=== PATIENT | female | born 2000 | race Caucasian/White ===

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

== ENCOUNTER 2022-01-29 08:00 | Outpatient (CLI) | payer OTHER | END 2022-01-29 23:59 | LOC: LAB.N 08:00 | PROVIDERS: ATTEND Family Medicine | DX: R30.0 Dysuria (principal) | CPT/HCPCS: 87086 ==

== ENCOUNTER 2022-05-11 05:01 | Emergency (ER) | payer OTHER ==
--- OUTSIDE RECORDS SUMMARY | 2022-05-11 05:08 | EXTERNAL MEDICAL SUMMARY RPT | Continuity of Care Document ---
:2000 Author Organization [facility] Address [address] [place] [address] Phone Allergies and Intolerances date description facility type (no date) No Known Drug Allergies [facility] (unkn own) Encounters No information. Functional Status No information. Immunizations No information. Medications date description facility [id number] Cimetidine 200 MG Oral Tablet [facility] [id number] Ondansetron 4 MG Oral Tablet [facility] Problems No information. Procedures date description facility [id number] [facility] [id number]+0000 [facility] [id number] [facility] Results/Labs test date author facility value unit interpret ation Result panel 1 (unknown) (no (unknown) (unknown) (no value) (units (unk nown) date) unknown) (unknown) (no (unknown) (unknown) Orders: (units (unkno wn) date) unknown) (unknown) (no (unknown) (unknown) (no value) (units (unk nown) date) unknown) (unknown) (no (unknown) (unknown) [place], [place] (units ( unknown) date) [id number] unknown) (unknown) (no (unknown) (unknown) Draft (units (unkno wn) date) unknown) (unknown) (no (unknown) (unknown) Hypertension (units (u nknown) date) unknown) (unknown) (no (unknown) (unknown) [facility] (units (unknown) date) unknown) (unknown) (no (unknown) (unknown) Urology Office (units (unknown) date) Visit unknown) (unknown) (no (unknown) (unknown) (no value) (units (unk nown) date) unknown) (unknown) (no (unknown) (unknown) 02/19/22 (units (unkno wn) date) unknown) (unknown) (no (unknown) (unknown) [id number] (units (unkno wn) date) unknown) (unknown) (no (unknown) (unknown) 21 y/o F presents (units (unknown) date) to clinic as a New unknown) Patient. Blood in urine. UTI. (unknown) (no (unknown) (unknown) Age/Sex: 21 / F (units (unknown) date) Date of Service: unknown) (unknown) (no (unknown) (unknown) Allergies (units (unkn own) date) unknown) (unknown) (no (unknown) (unknown) Assessment + Plan (units (unknown) date) unknown) (unknown) (no (unknown) (unknown) Attending Dr: (units ( unknown) date) Mikel Nicolas MD unknown) (unknown) (no (unknown) (unknown) : 2000 (units (unknown) date) Acct:[id number] unknown) (unknown) (no (unknown) (unknown) Dept at (units (unkno wn) date) . unknown) (unknown) (no (unknown) (unknown) Documented By: (units (unknown) date) Mikel Nicolas MD unknown) 02/19/22 1026 (unknown) (no (unknown) (unknown) Family History (units (unknown) date) (Updated 02/15/22 @ unknown) 15:55 by Isha Coffey RN) (unknown) (no (unknown) (unknown) Father Eczema (units (unknown) date) unknown) (unknown) (no (unknown) (unknown) Grandfather (units (un known) date) Cancer unknown) (unknown) (no (unknown) (unknown) History of ADHD (units (unknown) date) unknown) (unknown) (no (unknown) (unknown) Hx of (units (unkno wn) date) gastroesophageal unknown) reflux (GERD) (unknown) (no (unknown) (unknown) Hx of insomnia (units (unknown) date) unknown) (unknown) (no (unknown) (unknown) Intake (units (unkno wn) date) unknown) (unknown) (no (unknown) (unknown) Intake Note: (units (u nknown) date) unknown) (unknown) (no (unknown) (unknown) Loc: [facility] (units (unkno wn) date) unknown) (unknown) (no (unknown) (unknown) Medical History (units (unknown) date) (Updated 02/15/22 @ unknown) 15:51 by Isha Coffey RN) (unknown) (no (unknown) (unknown) Medications (units (un known) date) unknown) (unknown) (no (unknown) (unknown) Mother (units (unkno wn) date) Congenital heart unknown) defect (unknown) (no (unknown) (unknown) No Known Drug (units ( unknown) date) Allergies Allergy unknown) (Unverified 02/15/22 15:50) (unknown) (no (unknown) (unknown) Orders (units (unkno wn) date) unknown) (unknown) (no (unknown) (unknown) PFSH (units (unkno wn) date) unknown) (unknown) (no (unknown) (unknown) POC Urine Dip (units ( unknown) date) Today R30.0 - unknown) Dysuria (unknown) (no (unknown) (unknown) Patient: (units (unkno wn) date) Queta Gallagher P unknown) MR#: [id number] (unknown) (no (unknown) (unknown) Reason For Visit (units (unknown) date) unknown) (unknown) (no (unknown) (unknown) Signed By: (units (unk nown) date) unknown) (unknown) (no (unknown) (unknown) Sister Anxiety (units (unknown) date) unknown) (unknown) (no (unknown) (unknown) Smokeless tobacco (units (unknown) date) user: other unknown) (unknown) (no (unknown) (unknown) Smoking Status: (units (unknown) date) Current every day unknown) smoker (unknown) (no (unknown) (unknown) Smoking Status: (units (unknown) date) Current every day unknown) smoker (unknown) (no (unknown) (unknown) Social History (units (unknown) date) (Updated 02/15/22 @ unknown) 15:57 by Isha Coffey RN) (unknown) (no (unknown) (unknown) This note may have (units (unknown) date) been all or unknown) partially generated using voice recognition (unknown) (no (unknown) (unknown) Tobacco Status (units (unknown) date) unknown) (unknown) (no (unknown) (unknown) Visit Reasons: POLLUTION CONTROL ENGINEER (units (unknown) date) blood in urine/UTI unknown) (unknown) (no (unknown) (unknown) alcohol intake: (units (unknown) date) current unknown) (unknown) (no (unknown) (unknown) cimetidine 200 mg (units (unknown) date) tablet 200 mg PO unknown) QAC 02/15/22 [History Confirmed 02/15/22] (unknown) (no (unknown) (unknown) have occurred. If (units (unknown) date) there are any unknown) questions, please contact the Medical Records (unknown) (no (unknown) (unknown) may occur. (units (unk nown) date) Occasional unknown) wrong-word or 'sound-alike' substitutions may have (unknown) (no (unknown) (unknown) occurred due to (units (unknown) date) the inherent unknown) limitations of voice recognition software. Please (unknown) (no (unknown) (unknown) ondansetron HCl 4 (units (unknown) date) mg tablet 4 mg PO unknown) Q8H 02/15/22 [History Confirmed 02/15/22] (unknown) (no (unknown) (unknown) phenazopyridine (units (unknown) date) 100 mg tablet unknown) (Pyridium) 100 mg PO TID PRN #6 tab 01/03/22 [Rx] (unknown) (no (unknown) (unknown) read the note (units ( unknown) date) carefully and unknown) recognize, using context, where these substitutions (unknown) (no (unknown) (unknown) second hand (units (un known) date) exposure: No unknown) (unknown) (no (unknown) (unknown) software. Although (units (unknown) date) every effort is unknown) made to edit content, regulatory affairs director errors Result panel 2 (unknown) (no (unknown) (unknown) (no value) (units (unk nown) date) unknown) (unknown) (no (unknown) (unknown) Orders: (units (unkno wn) date) unknown) (unknown) (no (unknown) (unknown) (no value) (units (unk nown) date) unknown) (unknown) (no (unknown) (unknown) (no value) (units (unk nown) date) unknown) (unknown) (no (unknown) (unknown) [place], [place] (units ( unknown) date) [address] unknown) (unknown) (no (unknown) (unknown) Draft (units (unkno wn) date) unknown) (unknown) (no (unknown) (unknown) Hypertension (units (u nknown) date) unknown) (unknown) (no (unknown) (unknown) [facility] (units (unknown) date) unknown) (unknown) (no (unknown) (unknown) Urology Office (units (unknown) date) Visit unknown) (unknown) (no (unknown) (unknown) (no value) (units (unk nown) date) unknown) (unknown) (no (unknown) (unknown) Urine Appearance (units (unknown) date) Slighty Cloudy unknown) Last Edit by Shahida Cordoba RN on 02/19/22 (unknown) (no (unknown) (unknown) Urine Bilirubin (units (unknown) date) Negative Last unknown) Edit by Shahida Cordoba RN on 02/19/22 10:36 (unknown) (no (unknown) (unknown) Urine Blood (units (un known) date) Negative Last unknown) Edit by Shahida Cordoba RN on 02/19/22 10:36 (unknown) (no (unknown) (unknown) Urine Color (units (un known) date) Yellow Last unknown) Edit by Shahida Cordoba RN on 02/19/22 10:36 (unknown) (no (unknown) (unknown) Urine Glucose (units ( unknown) date) Negative mg/dL unknown) Last Edit by Shahida Cordoba RN on 02/19/22 10: (unknown) (no (unknown) (unknown) Urine Ketones (units ( unknown) date) Negative Last unknown) Edit by Shahida Cordoba RN on 02/19/22 10:36 (unknown) (no (unknown) (unknown) Urine Leukocyte (units (unknown) date) Esterase Negative unknown) Last Edit by Shahida Cordoba RN on (unknown) (no (unknown) (unknown) Urine Nitrate (units ( unknown) date) Negative Last unknown) Edit by Shahida Cordoba RN on 02/19/22 10:36 (unknown) (no (unknown) (unknown) Urine Protein (units ( unknown) date) Negative Last unknown) Edit by Shahida Cordoba RN on 02/19/22 10:36 (unknown) (no (unknown) (unknown) Urine Specific (units (unknown) date) [place] 1.020 unknown) Last Edit by Shahida Cordoba RN on 02/19/22 10 (unknown) (no (unknown) (unknown) Urine Urobilinogen (units (unknown) date) - 0.2 mg/dL unknown) Last Edit by Shahida Cordoba RN on (unknown) (no (unknown) (unknown) Urine pH 7.0 (units (unknown) date) Last Edit by Shahida unknown) RM Cordoba on 02/19/22 10:36 (unknown) (no (unknown) (unknown) 02/19/22 (units (unkno wn) date) unknown) (unknown) (no (unknown) (unknown) [id number] (units (unkno wn) date) unknown) (unknown) (no (unknown) (unknown) 10:36 (units (unkno wn) date) unknown) (unknown) (no (unknown) (unknown) 21 y/o F presents (units (unknown) date) to clinic as a New unknown) Patient. Blood in urine. UTI. (unknown) (no (unknown) (unknown) 2 (units (unkno wn) date) unknown) (unknown) (no (unknown) (unknown) 22 (units (unkno wn) date) unknown) (unknown) (no (unknown) (unknown) 36 (units (unkno wn) date) unknown) (unknown) (no (unknown) (unknown) :36 (units (unkno wn) date) unknown) (unknown) (no (unknown) (unknown) Age/Sex: 21 / F (units (unknown) date) Date of Service: unknown) (unknown) (no (unknown) (unknown) Allergies (units (unkn own) date) unknown) (unknown) (no (unknown) (unknown) Assessment + Plan (units (unknown) date) unknown) (unknown) (no (unknown) (unknown) Attending Dr: (units ( unknown) date) Mikel Nicolas MD unknown) (unknown) (no (unknown) (unknown) Billing- Post Void (units (unknown) date) Residual: Post Void unknown) Residual- 82463 (unknown) (no (unknown) (unknown) Bladder volume: (units (unknown) date) PVR = unknown) (unknown) (no (unknown) (unknown) : 2000 (units (unknown) date) Acct:[id number] unknown) (unknown) (no (unknown) (unknown) Dept at (units (unkno wn) date) . unknown) (unknown) (no (unknown) (unknown) Documented By: (units (unknown) date) Mikel Nicolas MD unknown) 02/19/22 1026 (unknown) (no (unknown) (unknown) Family History (units (unknown) date) (Updated 02/15/22 @ unknown) 15:55 by Isha Coffey RN) (unknown) (no (unknown) (unknown) Father Eczema (units (unknown) date) unknown) (unknown) (no (unknown) (unknown) Grandfather (units (un known) date) Cancer unknown) (unknown) (no (unknown) (unknown) History of ADHD (units (unknown) date) unknown) (unknown) (no (unknown) (unknown) Hx of (units (unkno wn) date) gastroesophageal unknown) reflux (GERD) (unknown) (no (unknown) (unknown) Hx of insomnia (units (unknown) date) unknown) (unknown) (no (unknown) (unknown) Intake (units (unkno wn) date) unknown) (unknown) (no (unknown) (unknown) Intake Note: (units (u nknown) date) unknown) (unknown) (no (unknown) (unknown) Loc: [facility] (units (unkno wn) date) unknown) (unknown) (no (unknown) (unknown) Medical History (units (unknown) date) (Updated 02/15/22 @ unknown) 15:51 by Isha Coffey RN) (unknown) (no (unknown) (unknown) Medications (units (un known) date) unknown) (unknown) (no (unknown) (unknown) Mother (units (unkno wn) date) Congenital heart unknown) defect (unknown) (no (unknown) (unknown) No Known Drug (units ( unknown) date) Allergies Allergy unknown) (Unverified 02/15/22 15:50) (unknown) (no (unknown) (unknown) Office Procedures (units (unknown) date) unknown) (unknown) (no (unknown) (unknown) Orders (units (unkno wn) date) unknown) (unknown) (no (unknown) (unknown) PFSH (units (unkno wn) date) unknown) (unknown) (no (unknown) (unknown) POC Urine Dip (units ( unknown) date) Today R30.0 - unknown) Dysuria (unknown) (no (unknown) (unknown) Patient: (units (unkno wn) date) Queta Gallagher unknown) MR#: [id number] (unknown) (no (unknown) (unknown) Reason For Visit (units (unknown) date) unknown) (unknown) (no (unknown) (unknown) Residual: post (units (unknown) date) void unknown) (unknown) (no (unknown) (unknown) Results (units (unkno wn) date) unknown) (unknown) (no (unknown) (unknown) Signed By: (units (unk nown) date) unknown) (unknown) (no (unknown) (unknown) Sister Anxiety (units (unknown) date) unknown) (unknown) (no (unknown) (unknown) Smokeless tobacco (units (unknown) date) user: other unknown) (unknown) (no (unknown) (unknown) Smoking Status: (units (unknown) date) Current every day unknown) smoker (unknown) (no (unknown) (unknown) Smoking Status: (units (unknown) date) Current every day unknown) smoker (unknown) (no (unknown) (unknown) Social History (units (unknown) date) (Updated 02/15/22 @ unknown) 15:57 by Isha Coffey RN) (unknown) (no (unknown) (unknown) This note may have (units (unknown) date) been all or unknown) partially generated using voice recognition (unknown) (no (unknown) (unknown) Tobacco Status (units (unknown) date) unknown) (unknown) (no (unknown) (unknown) Urine Dipstick (units (unknown) date) unknown) (unknown) (no (unknown) (unknown) Visit Reasons: POLLUTION CONTROL ENGINEER (units (unknown) date) blood in urine/UTI unknown) (unknown) (no (unknown) (unknown) alcohol intake: (units (unknown) date) current unknown) (unknown) (no (unknown) (unknown) cimetidine 200 mg (units (unknown) date) tablet 200 mg PO unknown) QAC 02/15/22 [History Confirmed 02/15/22] (unknown) (no (unknown) (unknown) have occurred. If (units (unknown) date) there are any unknown) questions, please contact the Medical Records (unknown) (no (unknown) (unknown) may occur. (units (unk nown) date) Occasional unknown) wrong-word or 'sound-alike' substitutions may have (unknown) (no (unknown) (unknown) occurred due to (units (unknown) date) the inherent unknown) limitations of voice recognition software. Please (unknown) (no (unknown) (unknown) ondansetron HCl 4 (units (unknown) date) mg tablet 4 mg PO unknown) Q8H 02/15/22 [History Confirmed 02/15/22] (unknown) (no (unknown) (unknown) phenazopyridine (units (unknown) date) 100 mg tablet unknown) (Pyridium) 100 mg PO TID PRN #6 tab 01/03/22 [Rx] (unknown) (no (unknown) (unknown) read the note (units ( unknown) date) carefully and unknown) recognize, using context, where these substitutions (unknown) (no (unknown) (unknown) second hand (units (un known) date) exposure: No unknown) (unknown) (no (unknown) (unknown) software. Although (units (unknown) date) every effort is unknown) made to edit content, regulatory affairs director errors Result panel 3 (unknown) (no (unknown) (unknown) (no value) (units (unk nown) date) unknown) (unknown) (no (unknown) (unknown) Orders: (units (unkno wn) date) unknown) (unknown) (no (unknown) (unknown) (no value) (units (unk nown) date) unknown) (unknown) (no (unknown) (unknown) (no value) (units (unk nown) date) unknown) (unknown) (no (unknown) (unknown) 02/19/22 (units (unkno wn) date) unknown) (unknown) (no (unknown) (unknown) 10:39 (units (unkno wn) date) unknown) (unknown) (no (unknown) (unknown) [place], [place] (units ( unknown) date) [address] unknown) (unknown) (no (unknown) (unknown) Draft (units (unkno wn) date) unknown) (unknown) (no (unknown) (unknown) Hypertension (units (u nknown) date) unknown) (unknown) (no (unknown) (unknown) [facility] (units (unknown) date) unknown) (unknown) (no (unknown) (unknown) Urology Office (units (unknown) date) Visit unknown) (unknown) (no (unknown) (unknown) (no value) (units (unk nown) date) unknown) (unknown) (no (unknown) (unknown) Urine Appearance (units (unknown) date) Slighty Cloudy unknown) Last Edit by Shahida Cordoba RN on 02/19/22 (unknown) (no (unknown) (unknown) Urine Bilirubin (units (unknown) date) Negative Last unknown) Edit by Shahida Cordoba RN on 02/19/22 10:36 (unknown) (no (unknown) (unknown) Urine Blood (units (un known) date) Negative Last unknown) Edit by Shahida Cordoba RN on 02/19/22 10:36 (unknown) (no (unknown) (unknown) Urine Color (units (un known) date) Yellow Last unknown) Edit by Shahida Cordoba RN on 02/19/22 10:36 (unknown) (no (unknown) (unknown) Urine Glucose (units ( unknown) date) Negative mg/dL unknown) Last Edit by Shahida Cordoba RN on 02/19/22 10: (unknown) (no (unknown) (unknown) Urine Ketones (units ( unknown) date) Negative Last unknown) Edit by Shahida Cordoba RN on 02/19/22 10:36 (unknown) (no (unknown) (unknown) Urine Leukocyte (units (unknown) date) Esterase Negative unknown) Last Edit by Shahida Cordoba RN on (unknown) (no (unknown) (unknown) Urine Nitrate (units ( unknown) date) Negative Last unknown) Edit by Shahida Cordoba RN on 02/19/22 10:36 (unknown) (no (unknown) (unknown) Urine Protein (units ( unknown) date) Negative Last unknown) Edit by Shahida Cordoba RN on 02/19/22 10:36 (unknown) (no (unknown) (unknown) Urine Specific (units (unknown) date) [place] 1.020 unknown) Last Edit by Shahida Cordoba RN on 02/19/22 10 (unknown) (no (unknown) (unknown) Urine Urobilinogen (units (unknown) date) - 0.2 mg/dL unknown) Last Edit by Shahida Cordoba RN on (unknown) (no (unknown) (unknown) Urine pH 7.0 (units (unknown) date) Last Edit by Shahida unknown) RM Cordoba on 02/19/22 10:36 (unknown) (no (unknown) (unknown) 02/19/22 (units (unkno wn) date) unknown) (unknown) (no (unknown) (unknown) [id number] (units (unkno wn) date) unknown) (unknown) (no (unknown) (unknown) 10:36 (units (unkno wn) date) unknown) (unknown) (no (unknown) (unknown) 21 y/o F presents (units (unknown) date) to clinic as a New unknown) Patient. Blood in urine. UTI. (unknown) (no (unknown) (unknown) 2 (units (unkno wn) date) unknown) (unknown) (no (unknown) (unknown) 22 (units (unkno wn) date) unknown) (unknown) (no (unknown) (unknown) 36 (units (unkno wn) date) unknown) (unknown) (no (unknown) (unknown) :36 (units (unkno wn) date) unknown) (unknown) (no (unknown) (unknown) Age/Sex: 21 / F (units (unknown) date) Date of Service: unknown) (unknown) (no (unknown) (unknown) Allergies (units (unkn own) date) unknown) (unknown) (no (unknown) (unknown) Assessment + Plan (units (unknown) date) unknown) (unknown) (no (unknown) (unknown) Attending Dr: (units ( unknown) date) Mikel Nicolas MD unknown) (unknown) (no (unknown) (unknown) BMI 18.3 (units (un known) date) unknown) (unknown) (no (unknown) (unknown) BP 113/61 (units (u nknown) date) unknown) (unknown) (no (unknown) (unknown) Billing- Post Void (units (unknown) date) Residual: Post Void unknown) Residual- 78453 (unknown) (no (unknown) (unknown) Bladder volume: (units (unknown) date) PVR = 30ml unknown) (unknown) (no (unknown) (unknown) Blood Pressure (units (unknown) date) Location Lt unknown) brachial (unknown) (no (unknown) (unknown) Confirmed (units (unkn own) date) 02/19/22] unknown) (unknown) (no (unknown) (unknown) : 2000 (units (unknown) date) Acct:[id number] unknown) (unknown) (no (unknown) (unknown) Dept at (units (unkno wn) date) . unknown) (unknown) (no (unknown) (unknown) Documented By: (units (unknown) date) Mikel Nicolas MD unknown) 02/19/22 1026 (unknown) (no (unknown) (unknown) Family History (units (unknown) date) (Updated 02/15/22 @ unknown) 15:55 by Isha Coffey RN) (unknown) (no (unknown) (unknown) Father Eczema (units (unknown) date) unknown) (unknown) (no (unknown) (unknown) Grandfather (units (un known) date) Cancer unknown) (unknown) (no (unknown) (unknown) Height 5 ft 5 (units (unknown) date) in unknown) (unknown) (no (unknown) (unknown) History of ADHD (units (unknown) date) unknown) (unknown) (no (unknown) (unknown) Hx of (units (unkno wn) date) gastroesophageal unknown) reflux (GERD) (unknown) (no (unknown) (unknown) Hx of insomnia (units (unknown) date) unknown) (unknown) (no (unknown) (unknown) Intake (units (unkno wn) date) unknown) (unknown) (no (unknown) (unknown) Intake Note: (units (u nknown) date) unknown) (unknown) (no (unknown) (unknown) Loc: [facility] (units (unkno wn) date) unknown) (unknown) (no (unknown) (unknown) Medical History (units (unknown) date) (Updated 02/15/22 @ unknown) 15:51 by Isha Coffey RN) (unknown) (no (unknown) (unknown) Medications (units (un known) date) unknown) (unknown) (no (unknown) (unknown) Mother (units (unkno wn) date) Congenital heart unknown) defect (unknown) (no (unknown) (unknown) No Known Drug (units ( unknown) date) Allergies Allergy unknown) (Verified 02/19/22 10:43) (unknown) (no (unknown) (unknown) Office Procedures (units (unknown) date) unknown) (unknown) (no (unknown) (unknown) Orders (units (unkno wn) date) unknown) (unknown) (no (unknown) (unknown) PFSH (units (unkno wn) date) unknown) (unknown) (no (unknown) (unknown) POC Urine Dip (units ( unknown) date) Today R30.0 - unknown) Dysuria (unknown) (no (unknown) (unknown) Patient: (units (unkno wn) date) Queta Gallagher P unknown) MR#: [id number] (unknown) (no (unknown) (unknown) Position (units (unkno wn) date) Sitting unknown) (unknown) (no (unknown) (unknown) Pulse 77 (units (un known) date) unknown) (unknown) (no (unknown) (unknown) Pulse Source (units (u nknown) date) Monitor unknown) (unknown) (no (unknown) (unknown) Reason For Visit (units (unknown) date) unknown) (unknown) (no (unknown) (unknown) Residual: post (units (unknown) date) void unknown) (unknown) (no (unknown) (unknown) Respiration 16 (units (unknown) date) unknown) (unknown) (no (unknown) (unknown) Results (units (unkno wn) date) unknown) (unknown) (no (unknown) (unknown) Signed By: (units (unk nown) date) unknown) (unknown) (no (unknown) (unknown) Sister Anxiety (units (unknown) date) unknown) (unknown) (no (unknown) (unknown) Smokeless tobacco (units (unknown) date) user: other unknown) (unknown) (no (unknown) (unknown) Smoking Status: (units (unknown) date) Current every day unknown) smoker (unknown) (no (unknown) (unknown) Smoking Status: (units (unknown) date) Current every day unknown) smoker (unknown) (no (unknown) (unknown) Social History (units (unknown) date) (Updated 02/15/22 @ unknown) 15:57 by Isha Coffey RN) (unknown) (no (unknown) (unknown) This note may have (units (unknown) date) been all or unknown) partially generated using voice recognition (unknown) (no (unknown) (unknown) Tobacco Status (units (unknown) date) unknown) (unknown) (no (unknown) (unknown) Urine Dipstick (units (unknown) date) unknown) (unknown) (no (unknown) (unknown) Visit Reasons: POLLUTION CONTROL ENGINEER (units (unknown) date) blood in urine/UTI unknown) (unknown) (no (unknown) (unknown) Vitals (units (unkno wn) date) unknown) (unknown) (no (unknown) (unknown) Weight 110 lb (units (unknown) date) unknown) (unknown) (no (unknown) (unknown) alcohol intake: (units (unknown) date) current unknown) (unknown) (no (unknown) (unknown) d-mannose 500 mg (units (unknown) date) capsule mg PO unknown) 02/19/22 [History Confirmed 02/19/22] (unknown) (no (unknown) (unknown) have occurred. If (units (unknown) date) there are any unknown) questions, please contact the Medical Records (unknown) (no (unknown) (unknown) may occur. (units (unk nown) date) Occasional unknown) wrong-word or 'sound-alike' substitutions may have (unknown) (no (unknown) (unknown) occurred due to (units (unknown) date) the inherent unknown) limitations of voice recognition software. Please (unknown) (no (unknown) (unknown) phenazopyridine (units (unknown) date) 100 mg tablet unknown) (Pyridium) 100 mg PO TID PRN #6 tab 01/03/22 [Rx (unknown) (no (unknown) (unknown) read the note (units ( unknown) date) carefully and unknown) recognize, using context, where these substitutions (unknown) (no (unknown) (unknown) second hand (units (un known) date) exposure: No unknown) (unknown) (no (unknown) (unknown) software. Although (units (unknown) date) every effort is unknown) made to edit content, regulatory affairs director errors Result panel 4 (unknown) (no (unknown) (unknown) (no value) (units (unk nown) date) unknown) (unknown) (no (unknown) (unknown) Orders: (units (unkno wn) date) unknown) (unknown) (no (unknown) (unknown) (no value) (units (unk nown) date) unknown) (unknown) (no (unknown) (unknown) (no value) (units (unk nown) date) unknown) (unknown) (no (unknown) (unknown) 02/19/22 (units (unkno wn) date) unknown) (unknown) (no (unknown) (unknown) 10:39 (units (unkno wn) date) unknown) (unknown) (no (unknown) (unknown) LEELA Caicedo (units ( unknown) date) [id number] unknown) (unknown) (no (unknown) (unknown) Draft (units (unkno wn) date) unknown) (unknown) (no (unknown) (unknown) Hypertension (units (u nknown) date) unknown) (unknown) (no (unknown) (unknown) [facility] (units (unknown) date) unknown) (unknown) (no (unknown) (unknown) Urology Office (units (unknown) date) Visit unknown) (unknown) (no (unknown) (unknown) (no value) (units (unk nown) date) unknown) (unknown) (no (unknown) (unknown) Urine Appearance (units (unknown) date) Slighty Cloudy unknown) Last Edit by Shahida Cordoba RN on 02/19/22 (unknown) (no (unknown) (unknown) Urine Bilirubin (units (unknown) date) Negative Last unknown) Edit by Shahida Cordoba RN on 02/19/22 10:36 (unknown) (no (unknown) (unknown) Urine Blood (units (un known) date) Negative Last unknown) Edit by Shahida Cordoba RN on 02/19/22 10:36 (unknown) (no (unknown) (unknown) Urine Color (units (un known) date) Yellow Last unknown) Edit by Shahida Cordoba RN on 02/19/22 10:36 (unknown) (no (unknown) (unknown) Urine Glucose (units ( unknown) date) Negative mg/dL unknown) Last Edit by Shahida Cordoba RN on 02/19/22 10: (unknown) (no (unknown) (unknown) Urine Ketones (units ( unknown) date) Negative Last unknown) Edit by Shahida Cordoba RN on 02/19/22 10:36 (unknown) (no (unknown) (unknown) Urine Leukocyte (units (unknown) date) Esterase Negative unknown) Last Edit by Shahida Cordoba RN on (unknown) (no (unknown) (unknown) Urine Nitrate (units ( unknown) date) Negative Last unknown) Edit by Shahida Cordoba RN on 02/19/22 10:36 (unknown) (no (unknown) (unknown) Urine Protein (units ( unknown) date) Negative Last unknown) Edit by Shahida Cordoba RN on 02/19/22 10:36 (unknown) (no (unknown) (unknown) Urine Specific (units (unknown) date) [place] 1.020 unknown) Last Edit by Shahida Cordoba RN on 02/19/22 10 (unknown) (no (unknown) (unknown) Urine Urobilinogen (units (unknown) date) - 0.2 mg/dL unknown) Last Edit by Shahida Cordoba RN on (unknown) (no (unknown) (unknown) Urine pH 7.0 (units (unknown) date) Last Edit by Shahida Cordoba RN on 02/19/22 10:36 (unknown) (no (unknown) (unknown) 02/19/22 (units (unkno wn) date) unknown) (unknown) (no (unknown) (unknown) [id number] (units (unkno wn) date) unknown) (unknown) (no (unknown) (unknown) 10:36 (units (unkno wn) date) unknown) (unknown) (no (unknown) (unknown) 21 y/o F presents (units (unknown) date) to clinic as a New unknown) Patient. Blood in urine. UTI. (unknown) (no (unknown) (unknown) 2 (units (unkno wn) date) unknown) (unknown) (no (unknown) (unknown) 22 (units (unkno wn) date) unknown) (unknown) (no (unknown) (unknown) 36 (units (unkno wn) date) unknown) (unknown) (no (unknown) (unknown) :36 (units (unkno wn) date) unknown) (unknown) (no (unknown) (unknown) Age/Sex: 21 / F (units (unknown) date) Date of Service: unknown) (unknown) (no (unknown) (unknown) Allergies (units (unkn own) date) unknown) (unknown) (no (unknown) (unknown) Assessment + Plan (units (unknown) date) unknown) (unknown) (no (unknown) (unknown) Attending Dr: (units ( unknown) date) Mikel Nicolas MD unknown) (unknown) (no (unknown) (unknown) BMI 18.3 (units (un known) date) unknown) (unknown) (no (unknown) (unknown) BP 113/61 (units (u nknown) date) unknown) (unknown) (no (unknown) (unknown) Billing- Post Void (units (unknown) date) Residual: Post Void unknown) Residual- 71217 (unknown) (no (unknown) (unknown) Bladder volume: (units (unknown) date) PVR = 30ml unknown) (unknown) (no (unknown) (unknown) Blood Pressure (units (unknown) date) Location Lt unknown) brachial (unknown) (no (unknown) (unknown) Confirmed (units (unkn own) date) 02/19/22] unknown) (unknown) (no (unknown) (unknown) : 2000 (units (unknown) date) Acct:[id number] unknown) (unknown) (no (unknown) (unknown) Dept at (units (unkno wn) date) . unknown) (unknown) (no (unknown) (unknown) Documented By: (units (unknown) date) Mikel Nicolas MD unknown) 02/19/22 1026 (unknown) (no (unknown) (unknown) Family History (units (unknown) date) (Updated 02/15/22 @ unknown) 15:55 by Isha Coffey RN) (unknown) (no (unknown) (unknown) Father Eczema (units (unknown) date) unknown) (unknown) (no (unknown) (unknown) Grandfather (units (un known) date) Cancer unknown) (unknown) (no (unknown) (unknown) Height 5 ft 5 (units (unknown) date) in unknown) (unknown) (no (unknown) (unknown) History of ADHD (units (unknown) date) unknown) (unknown) (no (unknown) (unknown) Hx of (units (unkno wn) date) gastroesophageal unknown) reflux (GERD) (unknown) (no (unknown) (unknown) Hx of insomnia (units (unknown) date) unknown) (unknown) (no (unknown) (unknown) Intake (units (unkno wn) date) unknown) (unknown) (no (unknown) (unknown) Intake Note: (units (u nknown) date) unknown) (unknown) (no (unknown) (unknown) Loc: [facility] (units (unkno wn) date) unknown) (unknown) (no (unknown) (unknown) Medical History (units (unknown) date) (Updated 02/15/22 @ unknown) 15:51 by Isha Coffey RN) (unknown) (no (unknown) (unknown) Medications (units (un known) date) unknown) (unknown) (no (unknown) (unknown) Mother (units (unkno wn) date) Congenital heart unknown) defect (unknown) (no (unknown) (unknown) No Known Drug (units ( unknown) date) Allergies Allergy unknown) (Verified 02/19/22 10:43) (unknown) (no (unknown) (unknown) Office Procedures (units (unknown) date) unknown) (unknown) (no (unknown) (unknown) Orders (units (unkno wn) date) unknown) (unknown) (no (unknown) (unknown) PFSH (units (unkno wn) date) unknown) (unknown) (no (unknown) (unknown) POC Urine Dip (units ( unknown) date) Today R30.0 - unknown) Dysuria (unknown) (no (unknown) (unknown) Patient: (units (unkno wn) date) Queta Gallagher P unknown) MR#: [id number] (unknown) (no (unknown) (unknown) Position (units (unkno wn) date) Sitting unknown) (unknown) (no (unknown) (unknown) Pulse 77 (units (un known) date) unknown) (unknown) (no (unknown) (unknown) Pulse Source (units (u nknown) date) Monitor unknown) (unknown) (no (unknown) (unknown) Reason For Visit (units (unknown) date) unknown) (unknown) (no (unknown) (unknown) Residual: post (units (unknown) date) void unknown) (unknown) (no (unknown) (unknown) Respiration 16 (units (unknown) date) unknown) (unknown) (no (unknown) (unknown) Results (units (unkno wn) date) unknown) (unknown) (no (unknown) (unknown) Signed By: (units (unk nown) date) unknown) (unknown) (no (unknown) (unknown) Sister Anxiety (units (unknown) date) unknown) (unknown) (no (unknown) (unknown) Smokeless tobacco (units (unknown) date) user: other unknown) (unknown) (no (unknown) (unknown) Smoking Status: (units (unknown) date) Current every day unknown) smoker (unknown) (no (unknown) (unknown) Smoking Status: (units (unknown) date) Current every day unknown) smoker (unknown) (no (unknown) (unknown) Social History (units (unknown) date) (Updated 02/15/22 @ unknown) 15:57 by Isha Coffey RN) (unknown) (no (unknown) (unknown) This note may have (units (unknown) date) been all or unknown) partially generated using voice recognition (unknown) (no (unknown) (unknown) Tobacco Status (units (unknown) date) unknown) (unknown) (no (unknown) (unknown) Urine Dipstick (units (unknown) date) unknown) (unknown) (no (unknown) (unknown) Visit Reasons: POLLUTION CONTROL ENGINEER (units (unknown) date) blood in urine/UTI unknown) (unknown) (no (unknown) (unknown) Vitals (units (unkno wn) date) unknown) (unknown) (no (unknown) (unknown) Weight 110 lb (units (unknown) date) unknown) (unknown) (no (unknown) (unknown) alcohol intake: (units (unknown) date) current unknown) (unknown) (no (unknown) (unknown) d-mannose 500 mg (units (unknown) date) capsule mg PO unknown) 02/19/22 [History Confirmed 02/19/22] (unknown) (no (unknown) (unknown) have occurred. If (units (unknown) date) there are any unknown) questions, please contact the Medical Records (unknown) (no (unknown) (unknown) may occur. (units (unk nown) date) Occasional unknown) wrong-word or 'sound-alike' substitutions may have (unknown) (no (unknown) (unknown) occurred due to (units (unknown) date) the inherent unknown) limitations of voice recognition software. Please (unknown) (no (unknown) (unknown) phenazopyridine (units (unknown) date) 100 mg tablet unknown) (Pyridium) 100 mg PO TID PRN #6 tab 01/03/22 [Rx (unknown) (no (unknown) (unknown) read the note (units ( unknown) date) carefully and unknown) recognize, using context, where these substitutions (unknown) (no (unknown) (unknown) second hand (units (un known) date) exposure: No unknown) (unknown) (no (unknown) (unknown) software. Although (units (unknown) date) every effort is unknown) made to edit content, regulatory affairs director errors Result panel 5 (unknown) (no (unknown) (unknown) (no value) (units (unk nown) date) unknown) (unknown) (no (unknown) (unknown) Orders: (units (unkno wn) date) unknown) (unknown) (no (unknown) (unknown) (no value) (units (unk nown) date) unknown) (unknown) (no (unknown) (unknown) (no value) (units (unk nown) date) unknown) (unknown) (no (unknown) (unknown) 02/19/22 (units (unkno wn) date) unknown) (unknown) (no (unknown) (unknown) 10:39 (units (unkno wn) date) unknown) (unknown) (no (unknown) (unknown) [place], [place] (units ( unknown) date) [id number] unknown) (unknown) (no (unknown) (unknown) Draft (units (unkno wn) date) unknown) (unknown) (no (unknown) (unknown) Hypertension (units (u nknown) date) unknown) (unknown) (no (unknown) (unknown) [facility] (units (unknown) date) unknown) (unknown) (no (unknown) (unknown) Urology Office (units (unknown) date) Visit unknown) (unknown) (no (unknown) (unknown) (no value) (units (unk nown) date) unknown) (unknown) (no (unknown) (unknown) Urine Appearance (units (unknown) date) Slighty Cloudy unknown) Last Edit by Shahida Cordoba RN on 02/19/22 (unknown) (no (unknown) (unknown) Urine Bilirubin (units (unknown) date) Negative Last unknown) Edit by Shahida Cordoba RN on 02/19/22 10:36 (unknown) (no (unknown) (unknown) Urine Blood (units (un known) date) Negative Last unknown) Edit by Shahida Cordoba RN on 02/19/22 10:36 (unknown) (no (unknown) (unknown) Urine Color (units (un known) date) Yellow Last unknown) Edit by Shahida Cordoba RN on 02/19/22 10:36 (unknown) (no (unknown) (unknown) Urine Glucose (units ( unknown) date) Negative mg/dL unknown) Last Edit by Shahida Cordoba RN on 02/19/22 10: (unknown) (no (unknown) (unknown) Urine Ketones (units ( unknown) date) Negative Last unknown) Edit by Shahida Cordoba RN on 02/19/22 10:36 (unknown) (no (unknown) (unknown) Urine Leukocyte (units (unknown) date) Esterase Negative unknown) Last Edit by Shahida Cordoba RN on (unknown) (no (unknown) (unknown) Urine Nitrate (units ( unknown) date) Negative Last unknown) Edit by Shahida Cordoba RN on 02/19/22 10:36 (unknown) (no (unknown) (unknown) Urine Protein (units ( unknown) date) Negative Last unknown) Edit by Shahida Cordoba RN on 02/19/22 10:36 (unknown) (no (unknown) (unknown) Urine Specific (units (unknown) date) [place] 1.020 unknown) Last Edit by Shahida Cordoba RN on 02/19/22 10 (unknown) (no (unknown) (unknown) Urine Urobilinogen (units (unknown) date) - 0.2 mg/dL unknown) Last Edit by Shahida Cordoba RN on (unknown) (no (unknown) (unknown) Urine pH 7.0 (units (unknown) date) Last Edit by Shahida unknown) RM Cordoba on 02/19/22 10:36 (unknown) (no (unknown) (unknown) 02/19/22 (units (unkno wn) date) unknown) (unknown) (no (unknown) (unknown) [id number] (units (unkno wn) date) unknown) (unknown) (no (unknown) (unknown) 10:36 (units (unkno wn) date) unknown) (unknown) (no (unknown) (unknown) 21 y/o F presents (units (unknown) date) to clinic as a New unknown) Patient. Blood in urine. UTI. (unknown) (no (unknown) (unknown) 2 (units (unkno wn) date) unknown) (unknown) (no (unknown) (unknown) 22 (units (unkno wn) date) unknown) (unknown) (no (unknown) (unknown) 36 (units (unkno wn) date) unknown) (unknown) (no (unknown) (unknown) :36 (units (unkno wn) date) unknown) (unknown) (no (unknown) (unknown) Age/Sex: 21 / F (units (unknown) date) Date of Service: unknown) (unknown) (no (unknown) (unknown) Allergies (units (unkn own) date) unknown) (unknown) (no (unknown) (unknown) Assessment + Plan (units (unknown) date) unknown) (unknown) (no (unknown) (unknown) Attending Dr: (units ( unknown) date) Mikel Nioclas MD unknown) (unknown) (no (unknown) (unknown) BMI 18.3 (units (un known) date) unknown) (unknown) (no (unknown) (unknown) BP 113/61 (units (u nknown) date) unknown) (unknown) (no (unknown) (unknown) Billing- Post Void (units (unknown) date) Residual: Post Void unknown) Residual- 35312 (unknown) (no (unknown) (unknown) Bladder volume: (units (unknown) date) PVR = 30ml unknown) (unknown) (no (unknown) (unknown) Blood Pressure (units (unknown) date) Location Lt unknown) brachial (unknown) (no (unknown) (unknown) CT abdomen pelvis (units (unknown) date) wo/w con 1 Week unknown) N39.0 - Urinary tract infection, site not (unknown) (no (unknown) (unknown) Confirmed (units (unkn own) date) 02/19/22] unknown) (unknown) (no (unknown) (unknown) : 2000 (units (unknown) date) Acct:[id number] unknown) (unknown) (no (unknown) (unknown) Dept at (units (unkno wn) date) . unknown) (unknown) (no (unknown) (unknown) Documented By: (units (unknown) date) Mikel Nicolas MD unknown) 02/19/22 1026 (unknown) (no (unknown) (unknown) Family History (units (unknown) date) (Updated 02/15/22 @ unknown) 15:55 by Isha Coffey RN) (unknown) (no (unknown) (unknown) Father Eczema (units (unknown) date) unknown) (unknown) (no (unknown) (unknown) Grandfather (units (un known) date) Cancer unknown) (unknown) (no (unknown) (unknown) Gross hematuria (units (unknown) date) unknown) (unknown) (no (unknown) (unknown) Height 5 ft 5 (units (unknown) date) in unknown) (unknown) (no (unknown) (unknown) History of ADHD (units (unknown) date) unknown) (unknown) (no (unknown) (unknown) Hx of (units (unkno wn) date) gastroesophageal unknown) reflux (GERD) (unknown) (no (unknown) (unknown) Hx of insomnia (units (unknown) date) unknown) (unknown) (no (unknown) (unknown) Intake (units (unkno wn) date) unknown) (unknown) (no (unknown) (unknown) Intake Note: (units (u nknown) date) unknown) (unknown) (no (unknown) (unknown) Loc: [facility] (units (unkno wn) date) unknown) (unknown) (no (unknown) (unknown) Medical History (units (unknown) date) unknown) (unknown) (no (unknown) (unknown) Medications (units (un known) date) unknown) (unknown) (no (unknown) (unknown) Mother (units (unkno wn) date) Congenital heart unknown) defect (unknown) (no (unknown) (unknown) No Known Drug (units ( unknown) date) Allergies Allergy unknown) (Verified 02/19/22 10:43) (unknown) (no (unknown) (unknown) Office Procedures (units (unknown) date) unknown) (unknown) (no (unknown) (unknown) Orders (units (unkno wn) date) unknown) (unknown) (no (unknown) (unknown) PFSH (units (unkno wn) date) unknown) (unknown) (no (unknown) (unknown) POC Urine Dip (units ( unknown) date) Today R30.0 - unknown) Dysuria (unknown) (no (unknown) (unknown) Patient: (units (unkno wn) date) Queta Gallagher P unknown) MR#: [id number] (unknown) (no (unknown) (unknown) Position (units (unkno wn) date) Sitting unknown) (unknown) (no (unknown) (unknown) Pulse 77 (units (un known) date) unknown) (unknown) (no (unknown) (unknown) Pulse Source (units (u nknown) date) Monitor unknown) (unknown) (no (unknown) (unknown) Reason For Visit (units (unknown) date) unknown) (unknown) (no (unknown) (unknown) Recurrent urinary (units (unknown) date) tract infection unknown) (unknown) (no (unknown) (unknown) Residual: post (units (unknown) date) void unknown) (unknown) (no (unknown) (unknown) Respiration 16 (units (unknown) date) unknown) (unknown) (no (unknown) (unknown) Results (units (unkno wn) date) unknown) (unknown) (no (unknown) (unknown) Signed By: (units (unk nown) date) unknown) (unknown) (no (unknown) (unknown) Sister Anxiety (units (unknown) date) unknown) (unknown) (no (unknown) (unknown) Smokeless tobacco (units (unknown) date) user: other unknown) (unknown) (no (unknown) (unknown) Smoking Status: (units (unknown) date) Current every day unknown) smoker (unknown) (no (unknown) (unknown) Smoking Status: (units (unknown) date) Current every day unknown) smoker (unknown) (no (unknown) (unknown) Social History (units (unknown) date) (Updated 02/15/22 @ unknown) 15:57 by Isha Coffey RN) (unknown) (no (unknown) (unknown) This note may have (units (unknown) date) been all or unknown) partially generated using voice recognition (unknown) (no (unknown) (unknown) Tobacco Status (units (unknown) date) unknown) (unknown) (no (unknown) (unknown) Tobacco use (units (un known) date) unknown) (unknown) (no (unknown) (unknown) Urine Dipstick (units (unknown) date) unknown) (unknown) (no (unknown) (unknown) Visit Reasons: POLLUTION CONTROL ENGINEER (units (unknown) date) blood in urine/UTI unknown) (unknown) (no (unknown) (unknown) Vitals (units (unkno wn) date) unknown) (unknown) (no (unknown) (unknown) Weight 110 lb (units (unknown) date) unknown) (unknown) (no (unknown) (unknown) alcohol intake: (units (unknown) date) current unknown) (unknown) (no (unknown) (unknown) d-mannose 500 mg (units (unknown) date) capsule mg PO unknown) 02/19/22 [History Confirmed 02/19/22] (unknown) (no (unknown) (unknown) have occurred. If (units (unknown) date) there are any unknown) questions, please contact the Medical Records (unknown) (no (unknown) (unknown) may occur. (units (unk nown) date) Occasional unknown) wrong-word or 'sound-alike' substitutions may have (unknown) (no (unknown) (unknown) occurred due to (units (unknown) date) the inherent unknown) limitations of voice recognition software. Please (unknown) (no (unknown) (unknown) phenazopyridine (units (unknown) date) 100 mg tablet unknown) (Pyridium) 100 mg PO TID PRN #6 tab 01/03/22 [Rx (unknown) (no (unknown) (unknown) read the note (units ( unknown) date) carefully and unknown) recognize, using context, where these substitutions (unknown) (no (unknown) (unknown) second hand (units (un known) date) exposure: No unknown) (unknown) (no (unknown) (unknown) software. Although (units (unknown) date) every effort is unknown) made to edit content, regulatory affairs director errors (unknown) (no (unknown) (unknown) specified, R31.0 - (units (unknown) date) Gross hematuria, unknown) Z72.0 - Tobacco use Result panel 6 (unknown) (no (unknown) (unknown) (no value) (units (unk nown) date) unknown) (unknown) (no (unknown) (unknown) Code(s): (units (unkno wn) date) unknown) (unknown) (no (unknown) (unknown) Orders: (units (unkno wn) date) unknown) (unknown) (no (unknown) (unknown) Status: Acute (units ( unknown) date) unknown) (unknown) (no (unknown) (unknown) (no value) (units (unk nown) date) unknown) (unknown) (no (unknown) (unknown) (no value) (units (unk nown) date) unknown) (unknown) (no (unknown) (unknown) ADDENDUM (units (u nknown) date) unknown) (unknown) (no (unknown) (unknown) 02/19/22 (units (unkno wn) date) unknown) (unknown) (no (unknown) (unknown) 02/19/22 1125 (units ( unknown) date) unknown) (unknown) (no (unknown) (unknown) 10:39 (units (unkno wn) date) unknown) (unknown) (no (unknown) (unknown) LEELA Caicedo [id number] (unit s (unknown) date) unknown) (unknown) (no (unknown) (unknown) Hypertension (units (u nknown) date) unknown) (unknown) (no (unknown) (unknown) [facility] (units (unknown) date) unknown) (unknown) (no (unknown) (unknown) Signed with Addenda (unit s (unknown) date) unknown) (unknown) (no (unknown) (unknown) Urology Office (units (unknown) date) Visit unknown) (unknown) (no (unknown) (unknown) (no value) (units (unk nown) date) unknown) (unknown) (no (unknown) (unknown) Urine Appearance (units (unknown) date) Slighty Cloudy unknown) Last Edit by Shahida Cordoba RN on 02/19/22 (unknown) (no (unknown) (unknown) Urine Bilirubin (units (unknown) date) Negative Last unknown) Edit by Shahida Cordoba RN on 02/19/22 10:36 (unknown) (no (unknown) (unknown) Urine Blood (units (un known) date) Negative Last unknown) Edit by Shahida Cordoba RN on 02/19/22 10:36 (unknown) (no (unknown) (unknown) Urine Color (units (un known) date) Yellow Last Edit unknown) by Shahida Cordoba RN on 02/19/22 10:36 (unknown) (no (unknown) (unknown) Urine Glucose (units ( unknown) date) Negative mg/dL unknown) Last Edit by Shahida Cordoba RN on 02/19/22 10: (unknown) (no (unknown) (unknown) Urine Ketones (units ( unknown) date) Negative Last unknown) Edit by Shahida Cordoba RN on 02/19/22 10:36 (unknown) (no (unknown) (unknown) Urine Leukocyte (units (unknown) date) Esterase Negative unknown) Last Edit by Shahida Cordoba RN on (unknown) (no (unknown) (unknown) Urine Nitrate (units ( unknown) date) Negative Last unknown) Edit by Shahida Cordoba RN on 02/19/22 10:36 (unknown) (no (unknown) (unknown) Urine Protein (units ( unknown) date) Negative Last unknown) Edit by Shahida Cordoba RN on 02/19/22 10:36 (unknown) (no (unknown) (unknown) Urine Specific (units (unknown) date) [place] 1.020 unknown) Last Edit by Shahida Cordoba RN on 02/19/22 10 (unknown) (no (unknown) (unknown) Urine Urobilinogen (units (unknown) date) - 0.2 mg/dL unknown) Last Edit by Shahida Cordoba RN on (unknown) (no (unknown) (unknown) Urine pH 7.0 (units (unknown) date) Last Edit by Shahida unknown) RM Cordoba on 02/19/22 10:36 (unknown) (no (unknown) (unknown) (1) Gross (units (unkn own) date) hematuria: unknown) (unknown) (no (unknown) (unknown) (2) Recurrent (units ( unknown) date) urinary tract unknown) infection: (unknown) (no (unknown) (unknown) (3) Tobacco use: (units (unknown) date) unknown) (unknown) (no (unknown) (unknown) 02/19/22 (units (unkno wn) date) unknown) (unknown) (no (unknown) (unknown) [id number] (units (unkno wn) date) unknown) (unknown) (no (unknown) (unknown) 10:36 (units (unkno wn) date) unknown) (unknown) (no (unknown) (unknown) 21 y/o F presents (units (unknown) date) to clinic as a New unknown) Patient. Blood in urine. UTI. (unknown) (no (unknown) (unknown) 2 (units (unkno wn) date) unknown) (unknown) (no (unknown) (unknown) 22 (units (unkno wn) date) unknown) (unknown) (no (unknown) (unknown) 36 (units (unkno wn) date) unknown) (unknown) (no (unknown) (unknown) :36 (units (unkno wn) date) unknown) (unknown) (no (unknown) (unknown) Abdomen: Soft, (units (unknown) date) nontender, without unknown) palpable mass or hepatosplenomegaly (unknown) (no (unknown) (unknown) Add'l Complaint: (units (unknown) date) unknown) (unknown) (no (unknown) (unknown) Addendum Documented (unit s (unknown) date) By: Mikel Nicolas, unknown) (unknown) (no (unknown) (unknown) Addendum Signed By: (unit s (unknown) date) <Electronically unknown) signed by Mikel Nicolas MD> (unknown) (no (unknown) (unknown) Age/Sex: 21 / F (units (unknown) date) Date of Service: unknown) (unknown) (no (unknown) (unknown) All systems (units (un known) date) reviewed + are unknown) unremarkable except as noted in HPI and below (And (unknown) (no (unknown) (unknown) Allergies (units (unkn own) date) unknown) (unknown) (no (unknown) (unknown) Assessment + Plan (units (unknown) date) unknown) (unknown) (no (unknown) (unknown) Assessment and (units (unknown) date) plan: Gross unknown) hematuria, recurring urinary tract infections, (unknown) (no (unknown) (unknown) Attending Dr: Mikel (unit s (unknown) date) Gwendolyn Nicolas MD unknown) (unknown) (no (unknown) (unknown) BMI 18.3 (units (un known) date) unknown) (unknown) (no (unknown) (unknown) BP 113/61 (units (u nknown) date) unknown) (unknown) (no (unknown) (unknown) Back: Without CVA (units (unknown) date) or flank tenderness unknown) to percussion (unknown) (no (unknown) (unknown) Billing- Post Void (units (unknown) date) Residual: Post Void unknown) Residual- 90350 (unknown) (no (unknown) (unknown) Bladder volume: PVR (unit s (unknown) date) = 30ml unknown) (unknown) (no (unknown) (unknown) Blood Pressure (units (unknown) date) Location Lt unknown) brachial (unknown) (no (unknown) (unknown) CT abdomen pelvis (units (unknown) date) wo/w con 1 Week unknown) N39.0 - Urinary tract infection, site not (unknown) (no (unknown) (unknown) Cardiovascular (units (unknown) date) exam: Regular rate unknown) and rhythm without murmur (unknown) (no (unknown) (unknown) Chief Complaint (units (unknown) date) unknown) (unknown) (no (unknown) (unknown) Chief Complaint: (units (unknown) date) Gross hematuria unknown) (unknown) (no (unknown) (unknown) Confirmed 02/19/22] (unit s (unknown) date) unknown) (unknown) (no (unknown) (unknown) Const (units (unkno wn) date) unknown) (unknown) (no (unknown) (unknown) Counseling and (units (unknown) date) educating the unknown) patient/family/careg iver: 14 (unknown) (no (unknown) (unknown) : 2000 (units (unknown) date) Acct:[id number] unknown) (unknown) (no (unknown) (unknown) Dept at (units (unkno wn) date) . unknown) (unknown) (no (unknown) (unknown) Details: (units (unkno wn) date) unknown) (unknown) (no (unknown) (unknown) Documented By: (units (unknown) date) Mikel Nicolas MD unknown) 02/19/22 1026 (unknown) (no (unknown) (unknown) Documenting (units (un known) date) clinical information unknown) in EHR/Medical record: 8 (unknown) (no (unknown) (unknown) Exam (units (unkno wn) date) unknown) (unknown) (no (unknown) (unknown) Exam Narrative (units (unknown) date) unknown) (unknown) (no (unknown) (unknown) Exam Narrative: (units (unknown) date) unknown) (unknown) (no (unknown) (unknown) Family History (units (unknown) date) (Reviewed 02/19/22 @ unknown) 11:19 by Mikel Nicolas MD) (unknown) (no (unknown) (unknown) Father Eczema (units (unknown) date) unknown) (unknown) (no (unknown) (unknown) Genitourinary exam (units (unknown) date) deferred to flexible unknown) cystoscopy (unknown) (no (unknown) (unknown) Grandfather (units (un known) date) Cancer unknown) (unknown) (no (unknown) (unknown) Gross hematuria (units (unknown) date) unknown) (unknown) (no (unknown) (unknown) HPI (units (unkno wn) date) unknown) (unknown) (no (unknown) (unknown) Height 5 ft 5 in (unit s (unknown) date) unknown) (unknown) (no (unknown) (unknown) History of ADHD (units (unknown) date) unknown) (unknown) (no (unknown) (unknown) Hx of (units (unkno wn) date) gastroesophageal unknown) reflux (GERD) (unknown) (no (unknown) (unknown) Hx of insomnia (units (unknown) date) unknown) (unknown) (no (unknown) (unknown) Intake (units (unkno wn) date) unknown) (unknown) (no (unknown) (unknown) Intake Note: (units (u nknown) date) unknown) (unknown) (no (unknown) (unknown) Loc: [facility] (units (unkno wn) date) unknown) (unknown) (no (unknown) (unknown) Lungs: Clear full (units (unknown) date) and equal unknown) (unknown) (no (unknown) (unknown) Medical History (units (unknown) date) unknown) (unknown) (no (unknown) (unknown) Medications (units (un known) date) unknown) (unknown) (no (unknown) (unknown) Mother Congenital (unit s (unknown) date) heart defect unknown) (unknown) (no (unknown) (unknown) N39.0 - Urinary (units (unknown) date) tract infection, unknown) site not specified (unknown) (no (unknown) (unknown) Neurologic exam: (units (unknown) date) Grossly intact unknown) (unknown) (no (unknown) (unknown) No Known Drug (units ( unknown) date) Allergies Allergy unknown) (Verified 02/19/22 10:43) (unknown) (no (unknown) (unknown) Obtaining and/or (units (unknown) date) reviewing separately unknown) obtained history: 10 (unknown) (no (unknown) (unknown) Office Procedures (units (unknown) date) unknown) (unknown) (no (unknown) (unknown) Ordering (units (unkno wn) date) medications, tests, unknown) or procedures: 5 (unknown) (no (unknown) (unknown) Orders (units (unkno wn) date) unknown) (unknown) (no (unknown) (unknown) PFSH (units (unkno wn) date) unknown) (unknown) (no (unknown) (unknown) POC Urine Dip Today (unit s (unknown) date) R30.0 - Dysuria unknown) (unknown) (no (unknown) (unknown) Patient: (units (unkno wn) date) Queta Gallagher unknown) MR#: [id number] (unknown) (no (unknown) (unknown) Performing a (units (u nknown) date) medically unknown) appropriate exam and/or evaluation: 4 (unknown) (no (unknown) (unknown) Plan (units (unkno wn) date) unknown) (unknown) (no (unknown) (unknown) Position Sitting (unit s (unknown) date) unknown) (unknown) (no (unknown) (unknown) Postvoid residual (units (unknown) date) today is 30 mL and unknown) her urine is without sign of infection or (unknown) (no (unknown) (unknown) Preparing to see (units (unknown) date) the patient, i.e., unknown) chart review, review of tests: 7 (unknown) (no (unknown) (unknown) Pulse 77 (units (un known) date) unknown) (unknown) (no (unknown) (unknown) Pulse Source (units (u nknown) date) Monitor unknown) (unknown) (no (unknown) (unknown) R31.0 - Gross (units ( unknown) date) hematuria unknown) (unknown) (no (unknown) (unknown) ROS (units (unkno wn) date) unknown) (unknown) (no (unknown) (unknown) Reason For Visit (units (unknown) date) unknown) (unknown) (no (unknown) (unknown) Recurrent urinary (units (unknown) date) tract infection unknown) (unknown) (no (unknown) (unknown) Recurring urinary (units (unknown) date) tract infections, unknown) tobacco use, dysuria, urinary frequency. (unknown) (no (unknown) (unknown) Residual: post void (unit s (unknown) date) unknown) (unknown) (no (unknown) (unknown) Respiration 16 (units (unknown) date) unknown) (unknown) (no (unknown) (unknown) Results (units (unkno wn) date) unknown) (unknown) (no (unknown) (unknown) Signed By: (units (unk nown) date) <Electronically unknown) signed by Mikel Nicolas MD> (unknown) (no (unknown) (unknown) Sister Anxiety (units (unknown) date) unknown) (unknown) (no (unknown) (unknown) Smokeless tobacco (units (unknown) date) user: other unknown) (unknown) (no (unknown) (unknown) Smoking Status: (units (unknown) date) Current every day unknown) smoker (unknown) (no (unknown) (unknown) Smoking Status: (units (unknown) date) Current every day unknown) smoker (unknown) (no (unknown) (unknown) Social History (units (unknown) date) (Reviewed 02/19/22 @ unknown) 11:19 by Mikel Nicolas MD) (unknown) (no (unknown) (unknown) This 21-year-old (units (unknown) date) female comes Urology unknown) Clinic as a new patient with complaint of (unknown) (no (unknown) (unknown) This is an awake, (units (unknown) date) alert, oriented unknown) fit-appearing thin female in no apparent (unknown) (no (unknown) (unknown) This note may have (units (unknown) date) been all or unknown) partially generated using voice recognition (unknown) (no (unknown) (unknown) Time Coding Minutes (unit s (unknown) date) Spent: (must be on unknown) same date of service/appointment) (unknown) (no (unknown) (unknown) Time Spent (units (unk nown) date) unknown) (unknown) (no (unknown) (unknown) Tobacco Status (units (unknown) date) unknown) (unknown) (no (unknown) (unknown) Tobacco use (units (un known) date) unknown) (unknown) (no (unknown) (unknown) Total Time: 48 (units (unknown) date) unknown) (unknown) (no (unknown) (unknown) Urine Dipstick (units (unknown) date) unknown) (unknown) (no (unknown) (unknown) 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 She is (units (unknown) date) unaware of anything unknown) that makes it better or worse. She is (unknown) (no (unknown) (unknown) blood and no sign (units (unknown) date) of infection. She unknown) is currently on antibiotics. At least by (unknown) (no (unknown) (unknown) blood. (units (unkno wn) date) unknown) (unknown) (no (unknown) (unknown) cystoscopy future (units (unknown) date) plans to be made unknown) based on the findings of these studies. (unknown) (no (unknown) (unknown) d-mannose 500 mg (units (unknown) date) capsule mg PO unknown) 02/19/22 [History Confirmed 02/19/22] (unknown) (no (unknown) (unknown) distress. (units (unkn own) date) unknown) (unknown) (no (unknown) (unknown) genitourinary (units ( unknown) date) tract. unknown) (unknown) (no (unknown) (unknown) gross hematuria. (units (unknown) date) This hematuria is in unknown) the background of recurring urinary tract (unknown) (no (unknown) (unknown) have occurred. If (units (unknown) date) there are any unknown) questions, please contact the Medical Records (unknown) (no (unknown) (unknown) her report. She (units (unknown) date) has never had a unknown) workup for her urinary tract infections at (unknown) (no (unknown) (unknown) infections was the (units (unknown) date) patient reports she unknown) has had since the age of 16. She reports (unknown) (no (unknown) (unknown) least by her (units (u nknown) date) report. She denies unknown) fever, chills, nausea, vomiting, sign or (unknown) (no (unknown) (unknown) may occur. (units (unk nown) date) Occasional unknown) wrong-word or 'sound-alike' substitutions may have (unknown) (no (unknown) (unknown) occurred due to the (unit s (unknown) date) inherent limitations unknown) of voice recognition software. Please (unknown) (no (unknown) (unknown) phenazopyridine 100 (unit s (unknown) date) mg tablet (Pyridium) unknown) 100 mg PO TID PRN #6 tab 01/03/22 [Rx (unknown) (no (unknown) (unknown) problem list) (units ( unknown) date) unknown) (unknown) (no (unknown) (unknown) read the note (units ( unknown) date) carefully and unknown) recognize, using context, where these substitutions (unknown) (no (unknown) (unknown) second hand (units (un known) date) exposure: No unknown) (unknown) (no (unknown) (unknown) she has had no (units (unknown) date) workup for either of unknown) the. She reports she is a current tobacco (unknown) (no (unknown) (unknown) software. Although (units (unknown) date) every effort is made unknown) to edit content, regulatory affairs director errors (unknown) (no (unknown) (unknown) specified, R31.0 - (units (unknown) date) Gross hematuria, unknown) Z72.0 - Tobacco use (unknown) (no (unknown) (unknown) symptom of systemic (unit s (unknown) date) infectious disease. unknown) She denies any surgery on her (unknown) (no (unknown) (unknown) tobacco use. Plan (units (unknown) date) CT scan abdomen unknown) pelvis with and without contrast and flexible (unknown) (no (unknown) (unknown) told that she has (units (unknown) date) vesicoureteral unknown) reflux. She has never had blood in her urine (unknown) (no (unknown) (unknown) unsure if she had (units (unknown) date) any clots with the unknown) blood. Her urine today shows no sign of (unknown) (no (unknown) (unknown) user. Patient has (units (unknown) date) been started on D unknown) mannose. Patient denies ever having been Result panel 7 (unknown) (no (unknown) (unknown) (no value) (units (unk nown) date) unknown) (unknown) (no (unknown) (unknown) Orders: (units (unkno wn) date) unknown) (unknown) (no (unknown) (unknown) (no value) (units (unk nown) date) unknown) (unknown) (no (unknown) (unknown) [place], [place] (units ( unknown) date) [id number] unknown) (unknown) (no (unknown) (unknown) Draft (units (unkno wn) date) unknown) (unknown) (no (unknown) (unknown) Hypertension (units (u nknown) date) unknown) (unknown) (no (unknown) (unknown) [facility] (units (unknown) date) unknown) (unknown) (no (unknown) (unknown) Urology Office (units (unknown) date) Visit unknown) (unknown) (no (unknown) (unknown) (no value) (units (unk nown) date) unknown) (unknown) (no (unknown) (unknown) 03/06/22 (units (unkno wn) date) unknown) (unknown) (no (unknown) (unknown) [id number] (units (unkno wn) date) unknown) (unknown) (no (unknown) (unknown) 21 y/o F presents (units (unknown) date) to clinic for a unknown) flexible cystoscopy with Review CT Scan. (unknown) (no (unknown) (unknown) Age/Sex: 21 / F (units (unknown) date) Date of Service: unknown) (unknown) (no (unknown) (unknown) Allergies (units (unkn own) date) unknown) (unknown) (no (unknown) (unknown) Assessment + Plan (units (unknown) date) unknown) (unknown) (no (unknown) (unknown) Attending Dr: (units ( unknown) date) Mikel Nicolas MD unknown) (unknown) (no (unknown) (unknown) Billing- Post Void (units (unknown) date) Residual: Post Void unknown) Residual- 94160 (unknown) (no (unknown) (unknown) Bladder volume: (units (unknown) date) PVR = unknown) (unknown) (no (unknown) (unknown) : 2000 (units (unknown) date) Acct:[id number] unknown) (unknown) (no (unknown) (unknown) Dept at (units (unkno wn) date) . unknown) (unknown) (no (unknown) (unknown) Documented By: (units (unknown) date) Mikel Nicolas MD unknown) 03/06/22 1338 (unknown) (no (unknown) (unknown) Family History (units (unknown) date) (Reviewed 02/19/22 unknown) @ 11:19 by Mikel Nicolas MD) (unknown) (no (unknown) (unknown) Father Eczema (units (unknown) date) unknown) (unknown) (no (unknown) (unknown) Grandfather (units (un known) date) Cancer unknown) (unknown) (no (unknown) (unknown) Gross hematuria (units (unknown) date) unknown) (unknown) (no (unknown) (unknown) History of ADHD (units (unknown) date) unknown) (unknown) (no (unknown) (unknown) Hx of (units (unkno wn) date) gastroesophageal unknown) reflux (GERD) (unknown) (no (unknown) (unknown) Hx of insomnia (units (unknown) date) unknown) (unknown) (no (unknown) (unknown) Intake (units (unkno wn) date) unknown) (unknown) (no (unknown) (unknown) Intake Note: (units (u nknown) date) unknown) (unknown) (no (unknown) (unknown) Loc: [facility] (units (unkno wn) date) unknown) (unknown) (no (unknown) (unknown) Medical History (units (unknown) date) unknown) (unknown) (no (unknown) (unknown) Mother (units (unkno wn) date) Congenital heart unknown) defect (unknown) (no (unknown) (unknown) No Known Drug (units ( unknown) date) Allergies Allergy unknown) (Verified 02/19/22 10:43) (unknown) (no (unknown) (unknown) Office Procedures (units (unknown) date) unknown) (unknown) (no (unknown) (unknown) Orders (units (unkno wn) date) unknown) (unknown) (no (unknown) (unknown) PFSH (units (unkno wn) date) unknown) (unknown) (no (unknown) (unknown) POC Urine Dip (units ( unknown) date) Today R30.0 - unknown) Dysuria (unknown) (no (unknown) (unknown) Patient: (units (unkno wn) date) Queta Gallagher P unknown) MR#: [id number] (unknown) (no (unknown) (unknown) Procedure (units (unkn own) date) performed by: unknown) Shahida Cordoba (unknown) (no (unknown) (unknown) Reason For Visit (units (unknown) date) unknown) (unknown) (no (unknown) (unknown) Recurrent urinary (units (unknown) date) tract infection unknown) (unknown) (no (unknown) (unknown) Residual: post (units (unknown) date) void unknown) (unknown) (no (unknown) (unknown) Signed By: (units (unk nown) date) unknown) (unknown) (no (unknown) (unknown) Sister Anxiety (units (unknown) date) unknown) (unknown) (no (unknown) (unknown) Smokeless tobacco (units (unknown) date) user: other unknown) (unknown) (no (unknown) (unknown) Smoking Status: (units (unknown) date) Current every day unknown) smoker (unknown) (no (unknown) (unknown) Smoking Status: (units (unknown) date) Current every day unknown) smoker (unknown) (no (unknown) (unknown) Social History (units (unknown) date) (Reviewed 02/19/22 unknown) @ 11:19 by Mikel Nicolas MD) (unknown) (no (unknown) (unknown) This note may have (units (unknown) date) been all or unknown) partially generated using voice recognition (unknown) (no (unknown) (unknown) Tobacco Status (units (unknown) date) unknown) (unknown) (no (unknown) (unknown) Tobacco use (units (un known) date) unknown) (unknown) (no (unknown) (unknown) Visit Reasons: (units (unknown) date) flex cysto review unknown) CT scan (unknown) (no (unknown) (unknown) alcohol intake: (units (unknown) date) current unknown) (unknown) (no (unknown) (unknown) have occurred. If (units (unknown) date) there are any unknown) questions, please contact the Medical Records (unknown) (no (unknown) (unknown) may occur. (units (unk nown) date) Occasional unknown) wrong-word or 'sound-alike' substitutions may have (unknown) (no (unknown) (unknown) occurred due to (units (unknown) date) the inherent unknown) limitations of voice recognition software. Please (unknown) (no (unknown) (unknown) read the note (units ( unknown) date) carefully and unknown) recognize, using context, where these substitutions (unknown) (no (unknown) (unknown) second hand (units (un known) date) exposure: No unknown) (unknown) (no (unknown) (unknown) software. Although (units (unknown) date) every effort is unknown) made to edit content, regulatory affairs director errors Result panel 8 (unknown) (no (unknown) (unknown) (no value) (units (unk nown) date) unknown) (unknown) (no (unknown) (unknown) Orders: (units (unkno wn) date) unknown) (unknown) (no (unknown) (unknown) (no value) (units (unk nown) date) unknown) (unknown) (no (unknown) (unknown) [place], [place] (units ( unknown) date) [id number] unknown) (unknown) (no (unknown) (unknown) Draft (units (unkno wn) date) unknown) (unknown) (no (unknown) (unknown) Hypertension (units (u nknown) date) unknown) (unknown) (no (unknown) (unknown) [facility] (units (unknown) date) unknown) (unknown) (no (unknown) (unknown) Urology Office (units (unknown) date) Visit unknown) (unknown) (no (unknown) (unknown) (no value) (units (unk nown) date) unknown) (unknown) (no (unknown) (unknown) 03/06/22 (units (unkno wn) date) unknown) (unknown) (no (unknown) (unknown) [id number] (units (unkno wn) date) unknown) (unknown) (no (unknown) (unknown) 21 y/o F presents (units (unknown) date) to clinic for a unknown) flexible cystoscopy with Review CT Scan. (unknown) (no (unknown) (unknown) Age/Sex: 21 / F (units (unknown) date) Date of Service: unknown) (unknown) (no (unknown) (unknown) Allergies (units (unkn own) date) unknown) (unknown) (no (unknown) (unknown) Assessment + Plan (units (unknown) date) unknown) (unknown) (no (unknown) (unknown) Attending Dr: (units ( unknown) date) Mikel Nicolas MD unknown) (unknown) (no (unknown) (unknown) Billing- Post Void (units (unknown) date) Residual: Post Void unknown) Residual- 41434 (unknown) (no (unknown) (unknown) Bladder volume: (units (unknown) date) PVR = 3ml unknown) (unknown) (no (unknown) (unknown) Confirmed (units (unkn own) date) 03/06/22] unknown) (unknown) (no (unknown) (unknown) : 2000 (units (unknown) date) Acct:[id number] unknown) (unknown) (no (unknown) (unknown) Dept at (units (unkno wn) date) . unknown) (unknown) (no (unknown) (unknown) Documented By: (units (unknown) date) Mikel Nicolas MD unknown) 03/06/22 1338 (unknown) (no (unknown) (unknown) Family History (units (unknown) date) (Reviewed 02/19/22 unknown) @ 11:19 by Mikel Nicolas MD) (unknown) (no (unknown) (unknown) Father Eczema (units (unknown) date) unknown) (unknown) (no (unknown) (unknown) Grandfather (units (un known) date) Cancer unknown) (unknown) (no (unknown) (unknown) Gross hematuria (units (unknown) date) unknown) (unknown) (no (unknown) (unknown) History of ADHD (units (unknown) date) unknown) (unknown) (no (unknown) (unknown) Hx of (units (unkno wn) date) gastroesophageal unknown) reflux (GERD) (unknown) (no (unknown) (unknown) Hx of insomnia (units (unknown) date) unknown) (unknown) (no (unknown) (unknown) Intake (units (unkno wn) date) unknown) (unknown) (no (unknown) (unknown) Intake Note: (units (u nknown) date) unknown) (unknown) (no (unknown) (unknown) Loc: [facility] (units (unkno wn) date) unknown) (unknown) (no (unknown) (unknown) Medical History (units (unknown) date) unknown) (unknown) (no (unknown) (unknown) Medications (units (un known) date) unknown) (unknown) (no (unknown) (unknown) Mother (units (unkno wn) date) Congenital heart unknown) defect (unknown) (no (unknown) (unknown) No Known Drug (units ( unknown) date) Allergies Allergy unknown) (Verified 03/06/22 13:54) (unknown) (no (unknown) (unknown) Office Procedures (units (unknown) date) unknown) (unknown) (no (unknown) (unknown) Orders (units (unkno wn) date) unknown) (unknown) (no (unknown) (unknown) PFSH (units (unkno wn) date) unknown) (unknown) (no (unknown) (unknown) POC Urine Dip (units ( unknown) date) Today R30.0 - unknown) Dysuria (unknown) (no (unknown) (unknown) Patient: (units (unkno wn) date) Queta Gallagher P unknown) MR#: [id number] (unknown) (no (unknown) (unknown) Procedure (units (unkn own) date) performed by: unknown) Shahida Cordoba (unknown) (no (unknown) (unknown) Reason For Visit (units (unknown) date) unknown) (unknown) (no (unknown) (unknown) Recurrent urinary (units (unknown) date) tract infection unknown) (unknown) (no (unknown) (unknown) Residual: post (units (unknown) date) void unknown) (unknown) (no (unknown) (unknown) Signed By: (units (unk nown) date) unknown) (unknown) (no (unknown) (unknown) Sister Anxiety (units (unknown) date) unknown) (unknown) (no (unknown) (unknown) Smokeless tobacco (units (unknown) date) user: other unknown) (unknown) (no (unknown) (unknown) Smoking Status: (units (unknown) date) Current every day unknown) smoker (unknown) (no (unknown) (unknown) Smoking Status: (units (unknown) date) Current every day unknown) smoker (unknown) (no (unknown) (unknown) Social History (units (unknown) date) (Reviewed 02/19/22 unknown) @ 11:19 by Mikel Nicolas MD) (unknown) (no (unknown) (unknown) This note may have (units (unknown) date) been all or unknown) partially generated using voice recognition (unknown) (no (unknown) (unknown) Tobacco Status (units (unknown) date) unknown) (unknown) (no (unknown) (unknown) Tobacco use (units (un known) date) unknown) (unknown) (no (unknown) (unknown) Visit Reasons: (units (unknown) date) flex cysto review unknown) CT scan (unknown) (no (unknown) (unknown) alcohol intake: (units (unknown) date) current unknown) (unknown) (no (unknown) (unknown) d-mannose 500 mg (units (unknown) date) capsule mg PO unknown) 02/19/22 [History Confirmed 03/06/22] (unknown) (no (unknown) (unknown) have occurred. If (units (unknown) date) there are any unknown) questions, please contact the Medical Records (unknown) (no (unknown) (unknown) may occur. (units (unk nown) date) Occasional unknown) wrong-word or 'sound-alike' substitutions may have (unknown) (no (unknown) (unknown) occurred due to (units (unknown) date) the inherent unknown) limitations of voice recognition software. Please (unknown) (no (unknown) (unknown) phenazopyridine (units (unknown) date) 100 mg tablet unknown) (Pyridium) 100 mg PO TID PRN #6 tab 01/03/22 [Rx (unknown) (no (unknown) (unknown) read the note (units ( unknown) date) carefully and unknown) recognize, using context, where these substitutions (unknown) (no (unknown) (unknown) second hand (units (un known) date) exposure: No unknown) (unknown) (no (unknown) (unknown) software. Although (units (unknown) date) every effort is unknown) made to edit content, regulatory affairs director errors Result panel 9 (unknown) (no (unknown) (unknown) (no value) (units (unk nown) date) unknown) (unknown) (no (unknown) (unknown) Orders: (units (unkno wn) date) unknown) (unknown) (no (unknown) (unknown) (no value) (units (unk nown) date) unknown) (unknown) (no (unknown) (unknown) (no value) (units (unk nown) date) unknown) (unknown) (no (unknown) (unknown) [place], [place] (units ( unknown) date) [id number] unknown) (unknown) (no (unknown) (unknown) Draft (units (unkno wn) date) unknown) (unknown) (no (unknown) (unknown) Hypertension (units (u nknown) date) unknown) (unknown) (no (unknown) (unknown) [facility] (units (unknown) date) unknown) (unknown) (no (unknown) (unknown) Urology Office (units (unknown) date) Visit unknown) (unknown) (no (unknown) (unknown) (no value) (units (unk nown) date) unknown) (unknown) (no (unknown) (unknown) Urine Appearance (units (unknown) date) Slighty Cloudy unknown) Last Edit by Shahida Cordoba RN on 03/06/22 (unknown) (no (unknown) (unknown) Urine Bilirubin (units (unknown) date) Negative Last unknown) Edit by Shahida Cordoba RN on 03/06/22 14:20 (unknown) (no (unknown) (unknown) Urine Blood (units (un known) date) Negative Last unknown) Edit by Shahida Cordoba RN on 03/06/22 14:20 (unknown) (no (unknown) (unknown) Urine Color (units (un known) date) Yellow Last unknown) Edit by Shahida Cordoba RN on 03/06/22 14:20 (unknown) (no (unknown) (unknown) Urine Glucose (units ( unknown) date) Negative mg/dL unknown) Last Edit by Shahida Cordoba RN on 03/06/22 14: (unknown) (no (unknown) (unknown) Urine Ketones (units ( unknown) date) Negative Last unknown) Edit by Shahida Cordoba RN on 03/06/22 14:20 (unknown) (no (unknown) (unknown) Urine Leukocyte (units (unknown) date) Esterase Negative unknown) Last Edit by Shahida Cordoba RN on 03/06/ (unknown) (no (unknown) (unknown) Urine Nitrate (units ( unknown) date) Negative Last unknown) Edit by Shahida Cordoba RN on 03/06/22 14:20 (unknown) (no (unknown) (unknown) Urine Protein (units ( unknown) date) Negative Last unknown) Edit by Shahida Cordoba RN on 03/06/22 14:20 (unknown) (no (unknown) (unknown) Urine Specific (units (unknown) date) [place] 1.015 unknown) Last Edit by Shahida Cordoba RN on 03/06/22 14 (unknown) (no (unknown) (unknown) Urine Urobilinogen (units (unknown) date) - 0.2 mg/dL unknown) Last Edit by Shahida Cordoba RN on (unknown) (no (unknown) (unknown) Urine pH 7.0 (units (unknown) date) Last Edit by Shahida unknown) RM Cordoba on 03/06/22 14:20 (unknown) (no (unknown) (unknown) 03/06/22 (units (unkno wn) date) unknown) (unknown) (no (unknown) (unknown) [id number] (units (unkno wn) date) unknown) (unknown) (no (unknown) (unknown) 14:20 (units (unkno wn) date) unknown) (unknown) (no (unknown) (unknown) 21 y/o F presents (units (unknown) date) to clinic for a unknown) flexible cystoscopy with Review CT Scan. (unknown) (no (unknown) (unknown) 2 (units (unkno wn) date) unknown) (unknown) (no (unknown) (unknown) 20 (units (unkno wn) date) unknown) (unknown) (no (unknown) (unknown) 22 (units (unkno wn) date) unknown) (unknown) (no (unknown) (unknown) :20 (units (unkno wn) date) unknown) (unknown) (no (unknown) (unknown) Age/Sex: 21 / F (units (unknown) date) Date of Service: unknown) (unknown) (no (unknown) (unknown) Allergies (units (unkn own) date) unknown) (unknown) (no (unknown) (unknown) Assessment + Plan (units (unknown) date) unknown) (unknown) (no (unknown) (unknown) Attending Dr: (units ( unknown) date) Mikel Nicolas MD unknown) (unknown) (no (unknown) (unknown) Billing- Post Void (units (unknown) date) Residual: Post Void unknown) Residual- [id number] (unknown) (no (unknown) (unknown) Bladder volume: (units (unknown) date) PVR = 3ml unknown) (unknown) (no (unknown) (unknown) Confirmed (units (unkn own) date) 03/06/22] unknown) (unknown) (no (unknown) (unknown) : 2000 (units (unknown) date) Acct:[id number] unknown) (unknown) (no (unknown) (unknown) Dept at (units (unkno wn) date) . unknown) (unknown) (no (unknown) (unknown) Documented By: (units (unknown) date) Mikel Nicolas MD unknown) 03/06/22 1338 (unknown) (no (unknown) (unknown) Family History (units (unknown) date) (Reviewed 02/19/22 unknown) @ 11:19 by Mikel Nicolas MD) (unknown) (no (unknown) (unknown) Father Eczema (units (unknown) date) unknown) (unknown) (no (unknown) (unknown) Grandfather (units (un known) date) Cancer unknown) (unknown) (no (unknown) (unknown) Gross hematuria (units (unknown) date) unknown) (unknown) (no (unknown) (unknown) History of ADHD (units (unknown) date) unknown) (unknown) (no (unknown) (unknown) Hx of (units (unkno wn) date) gastroesophageal unknown) reflux (GERD) (unknown) (no (unknown) (unknown) Hx of insomnia (units (unknown) date) unknown) (unknown) (no (unknown) (unknown) Intake (units (unkno wn) date) unknown) (unknown) (no (unknown) (unknown) Intake Note: (units (u nknown) date) unknown) (unknown) (no (unknown) (unknown) Loc: [facility] (units (unkno wn) date) unknown) (unknown) (no (unknown) (unknown) Medical History (units (unknown) date) unknown) (unknown) (no (unknown) (unknown) Medications (units (un known) date) unknown) (unknown) (no (unknown) (unknown) Mother (units (unkno wn) date) Congenital heart unknown) defect (unknown) (no (unknown) (unknown) No Known Drug (units ( unknown) date) Allergies Allergy unknown) (Verified 03/06/22 13:54) (unknown) (no (unknown) (unknown) Office Procedures (units (unknown) date) unknown) (unknown) (no (unknown) (unknown) Orders (units (unkno wn) date) unknown) (unknown) (no (unknown) (unknown) PFSH (units (unkno wn) date) unknown) (unknown) (no (unknown) (unknown) POC Urine Dip (units ( unknown) date) Today R30.0 - unknown) Dysuria (unknown) (no (unknown) (unknown) Patient: (units (unkno wn) date) Queta Gallagher P unknown) MR#: [id number] (unknown) (no (unknown) (unknown) Procedure (units (unkn own) date) performed by: unknown) Shahida Cordoba (unknown) (no (unknown) (unknown) Reason For Visit (units (unknown) date) unknown) (unknown) (no (unknown) (unknown) Recurrent urinary (units (unknown) date) tract infection unknown) (unknown) (no (unknown) (unknown) Residual: post (units (unknown) date) void unknown) (unknown) (no (unknown) (unknown) Results (units (unkno wn) date) unknown) (unknown) (no (unknown) (unknown) Signed By: (units (unk nown) date) unknown) (unknown) (no (unknown) (unknown) Sister Anxiety (units (unknown) date) unknown) (unknown) (no (unknown) (unknown) Smokeless tobacco (units (unknown) date) user: other unknown) (unknown) (no (unknown) (unknown) Smoking Status: (units (unknown) date) Current every day unknown) smoker (unknown) (no (unknown) (unknown) Smoking Status: (units (unknown) date) Current every day unknown) smoker (unknown) (no (unknown) (unknown) Social History (units (unknown) date) (Reviewed 02/19/22 unknown) @ 11:19 by Mikel Nicolas MD) (unknown) (no (unknown) (unknown) This note may have (units (unknown) date) been all or unknown) partially generated using voice recognition (unknown) (no (unknown) (unknown) Tobacco Status (units (unknown) date) unknown) (unknown) (no (unknown) (unknown) Tobacco use (units (un known) date) unknown) (unknown) (no (unknown) (unknown) Urine Dipstick (units (unknown) date) unknown) (unknown) (no (unknown) (unknown) Visit Reasons: (units (unknown) date) flex cysto review unknown) CT scan (unknown) (no (unknown) (unknown) alcohol intake: (units (unknown) date) current unknown) (unknown) (no (unknown) (unknown) d-mannose 500 mg (units (unknown) date) capsule mg PO unknown) 02/19/22 [History Confirmed 03/06/22] (unknown) (no (unknown) (unknown) have occurred. If (units (unknown) date) there are any unknown) questions, please contact the Medical Records (unknown) (no (unknown) (unknown) may occur. (units (unk nown) date) Occasional unknown) wrong-word or 'sound-alike' substitutions may have (unknown) (no (unknown) (unknown) occurred due to (units (unknown) date) the inherent unknown) limitations of voice recognition software. Please (unknown) (no (unknown) (unknown) phenazopyridine (units (unknown) date) 100 mg tablet unknown) (Pyridium) 100 mg PO TID PRN #6 tab 01/03/22 [Rx (unknown) (no (unknown) (unknown) read the note (units ( unknown) date) carefully and unknown) recognize, using context, where these substitutions (unknown) (no (unknown) (unknown) second hand (units (un known) date) exposure: No unknown) (unknown) (no (unknown) (unknown) software. Although (units (unknown) date) every effort is unknown) made to edit content, regulatory affairs director errors Result panel 10 (unknown) (no (unknown) (unknown) (no value) (units (unk nown) date) unknown) (unknown) (no (unknown) (unknown) Orders: (units (unkno wn) date) unknown) (unknown) (no (unknown) (unknown) (no value) (units (unk nown) date) unknown) (unknown) (no (unknown) (unknown) (no value) (units (unk nown) date) unknown) (unknown) (no (unknown) (unknown) [place], [place] (units ( unknown) date) [id number] unknown) (unknown) (no (unknown) (unknown) Draft (units (unkno wn) date) unknown) (unknown) (no (unknown) (unknown) Hypertension (units (u nknown) date) unknown) (unknown) (no (unknown) (unknown) [facility] (units (unknown) date) unknown) (unknown) (no (unknown) (unknown) Urology Office (units (unknown) date) Visit unknown) (unknown) (no (unknown) (unknown) (no value) (units (unk nown) date) unknown) (unknown) (no (unknown) (unknown) Urine Appearance (units (unknown) date) Slighty Cloudy unknown) Last Edit by Shahida Cordoba RN on 03/06/22 (unknown) (no (unknown) (unknown) Urine Bilirubin (units (unknown) date) Negative Last unknown) Edit by Shahida Cordoba RN on 03/06/22 14:20 (unknown) (no (unknown) (unknown) Urine Blood (units (un known) date) Negative Last unknown) Edit by Shahida Cordoba RN on 03/06/22 14:20 (unknown) (no (unknown) (unknown) Urine Color (units (un known) date) Yellow Last unknown) Edit by Shahida Cordoba RN on 03/06/22 14:20 (unknown) (no (unknown) (unknown) Urine Glucose (units ( unknown) date) Negative mg/dL unknown) Last Edit by Shahida Cordoba RN on 03/06/22 14: (unknown) (no (unknown) (unknown) Urine Ketones (units ( unknown) date) Negative Last unknown) Edit by Shahida Cordoba RN on 03/06/22 14:20 (unknown) (no (unknown) (unknown) Urine Leukocyte (units (unknown) date) Esterase Negative unknown) Last Edit by Shahida Cordoba RN on (unknown) (no (unknown) (unknown) Urine Nitrate (units ( unknown) date) Negative Last unknown) Edit by Shahida Cordoba RN on 03/06/22 14:20 (unknown) (no (unknown) (unknown) Urine Protein (units ( unknown) date) Negative Last unknown) Edit by Shahida Cordoba RN on 03/06/22 14:20 (unknown) (no (unknown) (unknown) Urine Specific (units (unknown) date) [place] 1.015 unknown) Last Edit by Shahida Cordoba RN on 03/06/22 14 (unknown) (no (unknown) (unknown) Urine Urobilinogen (units (unknown) date) - 0.2 mg/dL unknown) Last Edit by Shahida Cordoba RN on (unknown) (no (unknown) (unknown) Urine pH 7.0 (units (unknown) date) Last Edit by Shahida Cordoba RN on 03/06/22 14:20 (unknown) (no (unknown) (unknown) 03/06/22 (units (unkno wn) date) unknown) (unknown) (no (unknown) (unknown) [id number] (units (unkno wn) date) unknown) (unknown) (no (unknown) (unknown) 14:20 (units (unkno wn) date) unknown) (unknown) (no (unknown) (unknown) 21 y/o F presents (units (unknown) date) to clinic for a unknown) flexible cystoscopy with Review CT Scan. (unknown) (no (unknown) (unknown) 2 (units (unkno wn) date) unknown) (unknown) (no (unknown) (unknown) 20 (units (unkno wn) date) unknown) (unknown) (no (unknown) (unknown) 22 (units (unkno wn) date) unknown) (unknown) (no (unknown) (unknown) :20 (units (unkno wn) date) unknown) (unknown) (no (unknown) (unknown) Add'l Complaint: (units (unknown) date) unknown) (unknown) (no (unknown) (unknown) Age/Sex: 21 / F (units (unknown) date) Date of Service: unknown) (unknown) (no (unknown) (unknown) Allergies (units (unkn own) date) unknown) (unknown) (no (unknown) (unknown) Assessment + Plan (units (unknown) date) unknown) (unknown) (no (unknown) (unknown) Attending Dr: (units ( unknown) date) Mikel Nicolas MD unknown) (unknown) (no (unknown) (unknown) Billing- Post Void (units (unknown) date) Residual: Post Void unknown) Residual- 13874 (unknown) (no (unknown) (unknown) Bladder volume: (units (unknown) date) PVR = 3ml unknown) (unknown) (no (unknown) (unknown) Chief Complaint (units (unknown) date) unknown) (unknown) (no (unknown) (unknown) Chief Complaint: (units (unknown) date) Gross hematuria unknown) (unknown) (no (unknown) (unknown) Confirmed (units (unkn own) date) 03/06/22] unknown) (unknown) (no (unknown) (unknown) : 2000 (units (unknown) date) Acct:[id number] unknown) (unknown) (no (unknown) (unknown) Dept at (units (unkno wn) date) . unknown) (unknown) (no (unknown) (unknown) Details: (units (unkno wn) date) unknown) (unknown) (no (unknown) (unknown) Documented By: (units (unknown) date) Mikel Nicolas MD unknown) 03/06/22 1338 (unknown) (no (unknown) (unknown) Family History (units (unknown) date) (Reviewed 02/19/22 unknown) @ 11:19 by Mikel Nicolas MD) (unknown) (no (unknown) (unknown) Father Eczema (units (unknown) date) unknown) (unknown) (no (unknown) (unknown) Grandfather (units (un known) date) Cancer unknown) (unknown) (no (unknown) (unknown) Gross hematuria (units (unknown) date) unknown) (unknown) (no (unknown) (unknown) HPI (units (unkno wn) date) unknown) (unknown) (no (unknown) (unknown) History of ADHD (units (unknown) date) unknown) (unknown) (no (unknown) (unknown) Hx of (units (unkno wn) date) gastroesophageal unknown) reflux (GERD) (unknown) (no (unknown) (unknown) Hx of insomnia (units (unknown) date) unknown) (unknown) (no (unknown) (unknown) Intake (units (unkno wn) date) unknown) (unknown) (no (unknown) (unknown) Intake Note: (units (u nknown) date) unknown) (unknown) (no (unknown) (unknown) Loc: [facility] (units (unkno wn) date) unknown) (unknown) (no (unknown) (unknown) Medical History (units (unknown) date) unknown) (unknown) (no (unknown) (unknown) Medications (units (un known) date) unknown) (unknown) (no (unknown) (unknown) Mother (units (unkno wn) date) Congenital heart unknown) defect (unknown) (no (unknown) (unknown) No Known Drug (units ( unknown) date) Allergies Allergy unknown) (Verified 03/06/22 13:54) (unknown) (no (unknown) (unknown) Office Procedures (units (unknown) date) unknown) (unknown) (no (unknown) (unknown) Orders (units (unkno wn) date) unknown) (unknown) (no (unknown) (unknown) PFSH (units (unkno wn) date) unknown) (unknown) (no (unknown) (unknown) POC Urine Dip (units ( unknown) date) Today R30.0 - unknown) Dysuria (unknown) (no (unknown) (unknown) Patient: (units (unkno wn) date) ElliottQueta P unknown) MR#: [id number] (unknown) (no (unknown) (unknown) Procedure (units (unkn own) date) performed by: unknown) Shahida Cordoba (unknown) (no (unknown) (unknown) Reason For Visit (units (unknown) date) unknown) (unknown) (no (unknown) (unknown) Recurrent urinary (units (unknown) date) tract infection unknown) (unknown) (no (unknown) (unknown) Recurrent urinary (units (unknown) date) tract infections, unknown) tobacco use, dysuria (unknown) (no (unknown) (unknown) Residual: post (units (unknown) date) void unknown) (unknown) (no (unknown) (unknown) Results (units (unkno wn) date) unknown) (unknown) (no (unknown) (unknown) Signed By: (units (unk nown) date) unknown) (unknown) (no (unknown) (unknown) Sister Anxiety (units (unknown) date) unknown) (unknown) (no (unknown) (unknown) Smokeless tobacco (units (unknown) date) user: other unknown) (unknown) (no (unknown) (unknown) Smoking Status: (units (unknown) date) Current every day unknown) smoker (unknown) (no (unknown) (unknown) Smoking Status: (units (unknown) date) Current every day unknown) smoker (unknown) (no (unknown) (unknown) Social History (units (unknown) date) (Reviewed 02/19/22 unknown) @ 11:19 by Mikel Nicolas MD) (unknown) (no (unknown) (unknown) This 21-year-old (units (unknown) date) female comes unknown) [facility] for flexible cystoscopy related to (unknown) (no (unknown) (unknown) This note may have (units (unknown) date) been all or unknown) partially generated using voice recognition (unknown) (no (unknown) (unknown) Tobacco Status (units (unknown) date) unknown) (unknown) (no (unknown) (unknown) Tobacco use (units (un known) date) unknown) (unknown) (no (unknown) (unknown) Urine Dipstick (units (unknown) date) unknown) (unknown) (no (unknown) (unknown) Visit Reasons: (units (unknown) date) flex cysto review unknown) CT scan (unknown) (no (unknown) (unknown) alcohol intake: (units (unknown) date) current unknown) (unknown) (no (unknown) (unknown) appendolith though (units (unknown) date) the appendix is not unknown) visualized, the patient states she has (unknown) (no (unknown) (unknown) comes with a CT (units (unknown) date) scan which is unknown) reviewed in the findings gone over with the (unknown) (no (unknown) (unknown) d-mannose 500 mg (units (unknown) date) capsule mg PO unknown) 02/19/22 [History Confirmed 03/06/22] (unknown) (no (unknown) (unknown) have occurred. If (units (unknown) date) there are any unknown) questions, please contact the Medical Records (unknown) (no (unknown) (unknown) her gross hematuria (units (unknown) date) recurring urinary unknown) tract infections and tobacco use. Patient (unknown) (no (unknown) (unknown) may occur. (units (unk nown) date) Occasional unknown) wrong-word or 'sound-alike' substitutions may have (unknown) (no (unknown) (unknown) not had an (units (unk nown) date) appendectomy. It unknown) also shows an IUD and normal genitourinary (unknown) (no (unknown) (unknown) occurred due to (units (unknown) date) the inherent unknown) limitations of voice recognition software. Please (unknown) (no (unknown) (unknown) patient questions (units (unknown) date) answered she wished unknown) to proceed. (unknown) (no (unknown) (unknown) patient. It shows (units (unknown) date) a calcification in unknown) the area of the appendix which could be (unknown) (no (unknown) (unknown) phenazopyridine (units (unknown) date) 100 mg tablet unknown) (Pyridium) 100 mg PO TID PRN #6 tab 01/03/22 [Rx (unknown) (no (unknown) (unknown) read the note (units ( unknown) date) carefully and unknown) recognize, using context, where these substitutions (unknown) (no (unknown) (unknown) second hand (units (un known) date) exposure: No unknown) (unknown) (no (unknown) (unknown) software. Although (units (unknown) date) every effort is unknown) made to edit content, regulatory affairs director errors (unknown) (no (unknown) (unknown) structures. (units (un known) date) Flexible unknown) cystoscopy, procedure, risk, alternatives gone over the Result panel 11 (unknown) (no (unknown) (unknown) (no value) (units (unk nown) date) unknown) (unknown) (no (unknown) (unknown) Orders: (units (unkno wn) date) unknown) (unknown) (no (unknown) (unknown) (no value) (units (unk nown) date) unknown) (unknown) (no (unknown) (unknown) (no value) (units (unk nown) date) unknown) (unknown) (no (unknown) (unknown) 03/06/22 1627 (units ( unknown) date) unknown) (unknown) (no (unknown) (unknown) [place], [place] (units ( unknown) date) [address] unknown) (unknown) (no (unknown) (unknown) Hypertension (units (u nknown) date) unknown) (unknown) (no (unknown) (unknown) [facility] (units (unknown) date) unknown) (unknown) (no (unknown) (unknown) Signed (units (unkno wn) date) unknown) (unknown) (no (unknown) (unknown) Urology Office (units (unknown) date) Visit unknown) (unknown) (no (unknown) (unknown) (no value) (units (unk nown) date) unknown) (unknown) (no (unknown) (unknown) It seems somewhat (units (unknown) date) of a pale pink with unknown) what appear with a very fine, if it were (unknown) (no (unknown) (unknown) Urine Appearance (units (unknown) date) Slighty Cloudy unknown) Last Edit by Shahida Cordoba RN on 03/06/22 (unknown) (no (unknown) (unknown) Urine Bilirubin (units (unknown) date) Negative Last unknown) Edit by Shahida Cordoba RN on 03/06/22 14:20 (unknown) (no (unknown) (unknown) Urine Blood (units (un known) date) Negative Last unknown) Edit by Shahida Cordoba RN on 03/06/22 14:20 (unknown) (no (unknown) (unknown) Urine Color (units (un known) date) Yellow Last unknown) Edit by Shahida Cordoba RN on 03/06/22 14:20 (unknown) (no (unknown) (unknown) Urine Glucose (units ( unknown) date) Negative mg/dL unknown) Last Edit by Shahida Cordoba RN on 03/06/22 14: (unknown) (no (unknown) (unknown) Urine Ketones (units ( unknown) date) Negative Last unknown) Edit by Shahida Cordoba RN on 03/06/22 14:20 (unknown) (no (unknown) (unknown) Urine Leukocyte (units (unknown) date) Esterase Negative unknown) Last Edit by Shahida Cordoba RN on (unknown) (no (unknown) (unknown) Urine Nitrate (units ( unknown) date) Negative Last unknown) Edit by Shahida Cordoba RN on 03/06/22 14:20 (unknown) (no (unknown) (unknown) Urine Protein (units ( unknown) date) Negative Last unknown) Edit by Shahida Cordoba RN on 03/06/22 14:20 (unknown) (no (unknown) (unknown) Urine Specific (units (unknown) date) [place] 1.015 unknown) Last Edit by Shahida Cordoba RN on 03/06/22 14 (unknown) (no (unknown) (unknown) Urine Urobilinogen (units (unknown) date) - 0.2 mg/dL unknown) Last Edit by Shahida Cordoba RN on (unknown) (no (unknown) (unknown) Urine pH 7.0 (units (unknown) date) Last Edit by Shahida unknownTal Cordoba RN on 03/06/22 14:20 (unknown) (no (unknown) (unknown) 03/06/22 (units (unkno wn) date) unknown) (unknown) (no (unknown) (unknown) [id number] (units (unkno wn) date) unknown) (unknown) (no (unknown) (unknown) 14:20 (units (unkno wn) date) unknown) (unknown) (no (unknown) (unknown) 21 y/o F presents (units (unknown) date) to clinic for a unknown) flexible cystoscopy with Review CT Scan. (unknown) (no (unknown) (unknown) 2 (units (unkno wn) date) unknown) (unknown) (no (unknown) (unknown) 20 (units (unkno wn) date) unknown) (unknown) (no (unknown) (unknown) 22 (units (unkno wn) date) unknown) (unknown) (no (unknown) (unknown) :20 (units (unkno wn) date) unknown) (unknown) (no (unknown) (unknown) Add'l Complaint: (units (unknown) date) unknown) (unknown) (no (unknown) (unknown) Age/Sex: 21 / F (units (unknown) date) Date of Service: unknown) (unknown) (no (unknown) (unknown) Allergies (units (unkn own) date) unknown) (unknown) (no (unknown) (unknown) Anesthetic: 2% (units (unknown) date) viscous lidocaine unknown) per urethra. (unknown) (no (unknown) (unknown) Assessment + Plan (units (unknown) date) unknown) (unknown) (no (unknown) (unknown) Attending Dr: (units ( unknown) date) Mikel Nicolas MD unknown) (unknown) (no (unknown) (unknown) Billing- Post Void (units (unknown) date) Residual: Post Void unknown) Residual- 96204 (unknown) (no (unknown) (unknown) Bladder volume: (units (unknown) date) PVR = 3ml unknown) (unknown) (no (unknown) (unknown) Chief Complaint (units (unknown) date) unknown) (unknown) (no (unknown) (unknown) Chief Complaint: (units (unknown) date) Gross hematuria unknown) (unknown) (no (unknown) (unknown) Complications: (units (unknown) date) None unknown) (unknown) (no (unknown) (unknown) Confirmed (units (unkn own) date) 03/06/22] unknown) (unknown) (no (unknown) (unknown) Consent signed: (units (unknown) date) Yes unknown) (unknown) (no (unknown) (unknown) : 2000 (units (unknown) date) Acct:[id number] unknown) (unknown) (no (unknown) (unknown) Dept at (units (unkno wn) date) . unknown) (unknown) (no (unknown) (unknown) Details: (units (unkno wn) date) unknown) (unknown) (no (unknown) (unknown) Disposition: (units (u nknown) date) Patient will be unknown) discharged home: (unknown) (no (unknown) (unknown) Documented By: (units (unknown) date) Mikel Nicolas MD unknown) 03/06/22 1338 (unknown) (no (unknown) (unknown) Family History (units (unknown) date) (Reviewed 02/19/22 unknown) @ 11:19 by Mikel Nicolas MD) (unknown) (no (unknown) (unknown) Father Eczema (units (unknown) date) unknown) (unknown) (no (unknown) (unknown) Findings: (units (unkn own) date) External genitalia unknown) normal and well estrogenized. Urethral meatus (unknown) (no (unknown) (unknown) Grandfather (units (un known) date) Cancer unknown) (unknown) (no (unknown) (unknown) Gross hematuria (units (unknown) date) unknown) (unknown) (no (unknown) (unknown) HPI (units (unkno wn) date) unknown) (unknown) (no (unknown) (unknown) History of ADHD (units (unknown) date) unknown) (unknown) (no (unknown) (unknown) Hx of (units (unkno wn) date) gastroesophageal unknown) reflux (GERD) (unknown) (no (unknown) (unknown) Hx of insomnia (units (unknown) date) unknown) (unknown) (no (unknown) (unknown) Impression: Odd (units (unknown) date) appearing mucosa unknown) unsure of the significance. It does not (unknown) (no (unknown) (unknown) Informed consent (units (unknown) date) given: Yes unknown) (unknown) (no (unknown) (unknown) Intake (units (unkno wn) date) unknown) (unknown) (no (unknown) (unknown) Intake Note: (units (u nknown) date) unknown) (unknown) (no (unknown) (unknown) Loc: [facility] (units (unkno wn) date) unknown) (unknown) (no (unknown) (unknown) Medical History (units (unknown) date) unknown) (unknown) (no (unknown) (unknown) Medications (units (un known) date) unknown) (unknown) (no (unknown) (unknown) Mother (units (unkno wn) date) Congenital heart unknown) defect (unknown) (no (unknown) (unknown) No Known Drug (units ( unknown) date) Allergies Allergy unknown) (Verified 03/06/22 13:54) (unknown) (no (unknown) (unknown) No significant (units (unknown) date) blood vessels or unknown) other sites of bleeding were observed. (unknown) (no (unknown) (unknown) Office Procedures (units (unknown) date) unknown) (unknown) (no (unknown) (unknown) Orders (units (unkno wn) date) unknown) (unknown) (no (unknown) (unknown) PFSH (units (unkno wn) date) unknown) (unknown) (no (unknown) (unknown) POC Urine Dip (units ( unknown) date) Today R30.0 - unknown) Dysuria (unknown) (no (unknown) (unknown) Patient: (units (unkno wn) date) Queta Gallagher unknown) MR#: [id number] (unknown) (no (unknown) (unknown) Plan: Return to (units (unknown) date) clinic 6 weeks for unknown) urinalysis and repeat flexible cystoscopy. (unknown) (no (unknown) (unknown) Postoperative (units ( unknown) date) diagnosis: Gross unknown) hematuria, recurring urinary tract infections, (unknown) (no (unknown) (unknown) Preoperative (units (u nknown) date) diagnosis: Gross unknown) hematuria, recurring urinary tract infections (unknown) (no (unknown) (unknown) Procedure Notes: (units (unknown) date) unknown) (unknown) (no (unknown) (unknown) Procedure Notes: (units (unknown) date) Flexible cystoscopy unknown) note: (unknown) (no (unknown) (unknown) Procedure in (units (u nknown) date) detail: After unknown) informed consent was obtained, the patient was (unknown) (no (unknown) (unknown) Procedure (units (unkn own) date) performed by: unknown) Shahida Cordoba (unknown) (no (unknown) (unknown) Procedure (units (unkn own) date) performed: Flexible unknown) cystoscopy (unknown) (no (unknown) (unknown) Reason For Visit (units (unknown) date) unknown) (unknown) (no (unknown) (unknown) Recurrent urinary (units (unknown) date) tract infection unknown) (unknown) (no (unknown) (unknown) Recurrent urinary (units (unknown) date) tract infections, unknown) tobacco use, dysuria (unknown) (no (unknown) (unknown) Residual: post (units (unknown) date) void unknown) (unknown) (no (unknown) (unknown) Results (units (unkno wn) date) unknown) (unknown) (no (unknown) (unknown) Signed By: (units (unk nown) date) <Electronically unknown) signed by Mikel Nicolas MD> (unknown) (no (unknown) (unknown) Sister Anxiety (units (unknown) date) unknown) (unknown) (no (unknown) (unknown) Smokeless tobacco (units (unknown) date) user: other unknown) (unknown) (no (unknown) (unknown) Smoking Status: (units (unknown) date) Current every day unknown) smoker (unknown) (no (unknown) (unknown) Smoking Status: (units (unknown) date) Current every day unknown) smoker (unknown) (no (unknown) (unknown) Social History (units (unknown) date) (Reviewed 02/19/22 unknown) @ 11:19 by Mikel Nicolas MD) (unknown) (no (unknown) (unknown) Surgeon: Mikel Snow (units (unknown) date) Fidencio CARABALLO unknown) (unknown) (no (unknown) (unknown) This 21-year-old (units (unknown) date) female comes unknown) [facility] Clinic for flexible cystoscopy related to (unknown) (no (unknown) (unknown) This note may have (units (unknown) date) been all or unknown) partially generated using voice recognition (unknown) (no (unknown) (unknown) Tobacco Status (units (unknown) date) unknown) (unknown) (no (unknown) (unknown) Tobacco use (units (un known) date) unknown) (unknown) (no (unknown) (unknown) Urine Dipstick (units (unknown) date) unknown) (unknown) (no (unknown) (unknown) Visit Reasons: (units (unknown) date) flex cysto review unknown) CT scan (unknown) (no (unknown) (unknown) alcohol intake: (units (unknown) date) current unknown) (unknown) (no (unknown) (unknown) appear to be a (units (unknown) date) malignant change I unknown) would favor inflammatory. I did discuss with (unknown) (no (unknown) (unknown) appendolith though (units (unknown) date) the appendix is not unknown) visualized, the patient states she has (unknown) (no (unknown) (unknown) as the procedure (units (unknown) date) proceeded. unknown) (unknown) (no (unknown) (unknown) comes with a CT (units (unknown) date) scan which is unknown) reviewed in the findings gone over with the (unknown) (no (unknown) (unknown) cystoscope was (units (unknown) date) inserted in unknown) flexible cystoscopy performed including a retroflex (unknown) (no (unknown) (unknown) cystoscopy to see (units (unknown) date) if there have been unknown) changes. Also instructed the patient if (unknown) (no (unknown) (unknown) d-mannose 500 mg (units (unknown) date) capsule mg PO unknown) 02/19/22 [History Confirmed 03/06/22] (unknown) (no (unknown) (unknown) draped in sterile (units (unknown) date) fashion for unknown) flexible cystoscopy. 2% viscous lidocaine was (unknown) (no (unknown) (unknown) have occurred. If (units (unknown) date) there are any unknown) questions, please contact the Medical Records (unknown) (no (unknown) (unknown) her gross hematuria (units (unknown) date) recurring urinary unknown) tract infections and tobacco use. Patient (unknown) (no (unknown) (unknown) identified and (units (unknown) date) brought to the unknown) cystoscopy suite. Patient was then placed in a (unknown) (no (unknown) (unknown) instilled in the (units (unknown) date) urethra and time unknown) allowed for the block set up. Flexible (unknown) (no (unknown) (unknown) maneuver. The (units (unknown) date) cystoscope was unknown) removed there were no complications and the (unknown) (no (unknown) (unknown) may occur. (units (unk nown) date) Occasional unknown) wrong-word or 'sound-alike' substitutions may have (unknown) (no (unknown) (unknown) normal urethra (units (unknown) date) normal along its unknown) length. Ureteral orifices in normal position (unknown) (no (unknown) (unknown) not had an (units (unk nown) date) appendectomy. It unknown) also shows an IUD and normal genitourinary (unknown) (no (unknown) (unknown) occurred due to (units (unknown) date) the inherent unknown) limitations of voice recognition software. Please (unknown) (no (unknown) (unknown) of the bladder. (units (unknown) date) It did have perhaps unknown) an inflammatory appearance a bit unusual. (unknown) (no (unknown) (unknown) patient questions (units (unknown) date) answered she wished unknown) to proceed. (unknown) (no (unknown) (unknown) patient tolerated (units (unknown) date) the procedure well. unknown) Findings were discussed with the patient (unknown) (no (unknown) (unknown) patient. It shows (units (unknown) date) a calcification in unknown) the area of the appendix which could be (unknown) (no (unknown) (unknown) phenazopyridine (units (unknown) date) 100 mg tablet unknown) (Pyridium) 100 mg PO TID PRN #6 tab 01/03/22 [Rx (unknown) (no (unknown) (unknown) read the note (units ( unknown) date) carefully and unknown) recognize, using context, where these substitutions (unknown) (no (unknown) (unknown) second hand (units (un known) date) exposure: No unknown) (unknown) (no (unknown) (unknown) she has more gross (units (unknown) date) hematuria starts to unknown) have more dysuria or irritative voiding (unknown) (no (unknown) (unknown) skin, petechial (units (unknown) date) rash. There were unknown) no papillary lesions or no irregularity in the (unknown) (no (unknown) (unknown) smoothness of the (units (unknown) date) mucosa Dc unknown) appearing. And it appeared to involve most all (unknown) (no (unknown) (unknown) software. Although (units (unknown) date) every effort is unknown) made to edit content, regulatory affairs director errors (unknown) (no (unknown) (unknown) structures. (units (un known) date) Flexible unknown) cystoscopy, procedure, risk, alternatives gone over the (unknown) (no (unknown) (unknown) supine position on (units (unknown) date) the table. She was unknown) prepped with a sterilizing prepped and (unknown) (no (unknown) (unknown) symptoms she is to (units (unknown) date) contact us unknown) immediately. (unknown) (no (unknown) (unknown) the patient the (units (unknown) date) possibility of need unknown) for biopsy but I think that the better path (unknown) (no (unknown) (unknown) tobacco use (units (un known) date) unknown) (unknown) (no (unknown) (unknown) use of tobacco, (units (unknown) date) abnormal appearing unknown) bladder mucosa (unknown) (no (unknown) (unknown) with clear efflux. (units (unknown) date) The bladder mucosa unknown) has a rather odd and uncommon appearance. (unknown) (no (unknown) (unknown) would be to (units (un known) date) observe have the unknown) patient return to clinic in 6 weeks for repeat Result panel 12 (unknown) (no date) (unknown) (unknown) (no value) (units (un known) unknown) (unknown) (no date) (unknown) (unknown) [address]units ([address] n[address]) [address] unknown) (unknown) (no date) (unknown) (unknown) [place], [place] (units (unknown) [address] unknown) (unknown) (no date) (unknown) (unknown) [facility]) (unknown) (no date) (unknown) (unknown) Signed (units (unkn own) unknown) (unknown) (no date) (unknown) (unknown) XRay Report (units (u nknown) unknown) (unknown) (no date) (unknown) (unknown) (no value) (units (un known) unknown) (unknown) (no date) (unknown) (unknown) 04/30/22 (units (unkn own) unknown) (unknown) (no date) (unknown) (unknown) 1. No fracture (units (unknown) or dislocation. unknown) (unknown) (no date) (unknown) (unknown) Approved by: (units ( unknown) Lincoln Calvo unknown) Fadi on 04/30/2022 at 19:09 (unknown) (no date) (unknown) (unknown) Bones: No (units (un known) fractures or unknown) dislocations. No suspicious bony lesions. (unknown) (no date) (unknown) (unknown) COMPARISON: (units (u nknown) None. unknown) (unknown) (no date) (unknown) (unknown) Dictated by: (units ( unknown) Lincoln Calvo unknown) Fadi on 04/30/2022 at 19:09 (unknown) (no date) (unknown) (unknown) FINDINGS: (units (unk nown) unknown) (unknown) (no date) (unknown) (unknown) IMPRESSION: (units (u nknown) unknown) (unknown) (no date) (unknown) (unknown) INDICATIONS: (units ( unknown) twisting unknown) injury, contusion (unknown) (no date) (unknown) (unknown) Soft tissues: (units (unknown) No tibiotalar unknown) joint effusion. Achilles tendon appears normal. (unknown) (no date) (unknown) (unknown) TECHNIQUE: 3 (units (unknown) views of the unknown) foot were acquired. (unknown) (no date) (unknown) (unknown) [id number] (units (unkn own) unknown) (unknown) (no date) (unknown) (unknown) Accession (units (unk nown) Number: unknown) [id number] (unknown) (no date) (unknown) (unknown) Age/Sex: 21 / (units (unknown) F Date of unknown) Service: (unknown) (no date) (unknown) (unknown) : (units (unkn own) 2000 unknown) Acct:[id number] (unknown) (no date) (unknown) (unknown) Loc: ED (units (unkn own) unknown) (unknown) (no date) (unknown) (unknown) Ordering (units (unkn own) Provider: unknown) Virginia Orr D.O. (unknown) (no date) (unknown) (unknown) PROCEDURE: XR (units (unknown) FOOT LT MIN 3V unknown) (unknown) (no date) (unknown) (unknown) Patient: (units (unkn own) Queta Gallagher unknown) MR#: [id number] (unknown) (no date) (unknown) (unknown) Procedure: XR (units (unknown) foot LT min 3V unknown) Result panel 13 (unknown) (no (unknown) (unknown) (no value) (units (unk nown) date) unknown) (unknown) (no (unknown) (unknown) Radiologist's (units ( unknown) date) Impression: unknown) (unknown) (no (unknown) (unknown) PO (units (unkno wn) date) unknown) (unknown) (no (unknown) (unknown) Date of Service: (units (unknown) date) 04/30/22 unknown) (unknown) (no (unknown) (unknown) (no value) (units (unk nown) date) unknown) (unknown) (no (unknown) (unknown) 100 mg PO TID PRN (units (unknown) date) (Reason: pain) Qty: unknown) 6 0RF (unknown) (no (unknown) (unknown) Allergies (units (unkn own) date) unknown) (unknown) (no (unknown) (unknown) ED Orders (units (unkn own) date) unknown) (unknown) (no (unknown) (unknown) Emergency Report (units (unknown) date) unknown) (unknown) (no (unknown) (unknown) Home Medications (units (unknown) date) unknown) (unknown) (no (unknown) (unknown) Hypertension (units (u nknown) date) unknown) (unknown) (no (unknown) (unknown) [facility] (units (unknown) date) [address] [place] [address] unknown) [place] [address] (unknown) (no (unknown) (unknown) Previous Rx's (units ( unknown) date) unknown) (unknown) (no (unknown) (unknown) Signed (units (unkno wn) date) unknown) (unknown) (no (unknown) (unknown) Vital Signs - 8 hr (units (unknown) date) unknown) (unknown) (no (unknown) (unknown) XRay Report (units (un known) date) unknown) (unknown) (no (unknown) (unknown) (no value) (units (unk nown) date) unknown) (unknown) (no (unknown) (unknown) d-mannose 500 mg (units (unknown) date) capsule unknown) (unknown) (no (unknown) (unknown) phenazopyridine (units (unknown) date) [Pyridium] 100 mg unknown) tablet (unknown) (no (unknown) (unknown) 04/30/22 (units (unkno wn) date) unknown) (unknown) (no (unknown) (unknown) Foot sprain (units (un known) date) unknown) (unknown) (no (unknown) (unknown) Medication (units (unk nown) date) Instructions unknown) Recorded (unknown) (no (unknown) (unknown) Medication (units (unk nown) date) Instructions unknown) Recorded Confirmed (unknown) (no (unknown) (unknown) (Pyridium) tabs (units (unknown) date) unknown) (unknown) (no (unknown) (unknown) *Continue to take (units (unknown) date) medications as unknown) directed (unknown) (no (unknown) (unknown) *Follow up with (units (unknown) date) your primary care unknown) provider in 2-3 days or call [phone] (unknown) (no (unknown) (unknown) *Return to ER if (units (unknown) date) you should have unknown) increasing pain swelling inability to walk or (unknown) (no (unknown) (unknown) *What to do: At (units (unknown) date) this time increase unknown) activity and weight-bearing as tolerated. (unknown) (no (unknown) (unknown) *You have been (units (unknown) date) diagnosed with left unknown) foot sprain (unknown) (no (unknown) (unknown) [id number] (units (unkno wn) date) unknown) (unknown) (no (unknown) (unknown) 04/30/22 18:26 (units (unknown) date) unknown) (unknown) (no (unknown) (unknown) 1. No fracture or (units (unknown) date) dislocation. unknown) (unknown) (no (unknown) (unknown) 18:23 (units (unkno wn) date) unknown) (unknown) (no (unknown) (unknown) 8 point review of (units (unknown) date) systems is negative unknown) except for those stated above and HPI (unknown) (no (unknown) (unknown) ? (units (unkno wn) date) unknown) (unknown) (no (unknown) (unknown) Accession Number: (units (unknown) date) [id number] ?? unknown) (unknown) (no (unknown) (unknown) Acct:[id number] (units (unknown) date) unknown) (unknown) (no (unknown) (unknown) Activity (units (unkno wn) date) Restrictions/Additi unknown) onal Instructions: (unknown) (no (unknown) (unknown) Age/Sex: 21 / F (units (unknown) date) unknown) (unknown) (no (unknown) (unknown) Age/Sex: 21 / F (units (unknown) date) unknown) (unknown) (no (unknown) (unknown) Allergy/AdvReac (units (unknown) date) Type Severity unknown) Reaction Status Date / Time (unknown) (no (unknown) (unknown) Blood Pressure (units (unknown) date) 109/63 04/30/22 unknown) 18:23 (unknown) (no (unknown) (unknown) Blood Pressure (units (unknown) date) unknown) (unknown) (no (unknown) (unknown) Bones:? No (units (unk nown) date) fractures or unknown) dislocations.? No suspicious bony lesions.? (unknown) (no (unknown) (unknown) CARDIOVASCULAR: (units (unknown) date) Denies chest pain, unknown) palpitations (unknown) (no (unknown) (unknown) CARDIOVASCULAR: (units (unknown) date) peripheral pulses unknown) in tact, cap refill <2 sec (unknown) (no (unknown) (unknown) COMPARISON:? None. (units (unknown) date) unknown) (unknown) (no (unknown) (unknown) Chief Complaint: (units (unknown) date) Extremity Injury, unknown) Lower (unknown) (no (unknown) (unknown) Clinical (units (unkno wn) date) Impression: unknown) (unknown) (no (unknown) (unknown) Course (units (unkno wn) date) unknown) (unknown) (no (unknown) (unknown) : 2000 (units (unknown) date) Acct:[id number] unknown) (unknown) (no (unknown) (unknown) : 2000 (units (unknown) date) unknown) (unknown) (no (unknown) (unknown) Date of Service: (units (unknown) date) 04/30/22 unknown) (unknown) (no (unknown) (unknown) Departure (units (unkn own) date) unknown) (unknown) (no (unknown) (unknown) Dictated by: (units (u nknown) date) tanna Epstein M.D. on 04/30/2022 at 19:09 ? ? (unknown) (no (unknown) (unknown) Discharge Plan (units (unknown) date) unknown) (unknown) (no (unknown) (unknown) ER Physician: (units ( unknown) date) Virginia Orr D.O. unknown) (unknown) (no (unknown) (unknown) EXTREMITIES: (units (u nknown) date) Normal range of unknown) motion, no clubbing or edema. Neurovascularly (unknown) (no (unknown) (unknown) Elevate ice as (units (unknown) date) needed. Wear unknown) supportive shoes. (unknown) (no (unknown) (unknown) Exam (units (unkno wn) date) unknown) (unknown) (no (unknown) (unknown) Extremity x-ray (units (unknown) date) #1: unknown) (unknown) (no (unknown) (unknown) FINDINGS:? (units (unk nown) date) unknown) (unknown) (no (unknown) (unknown) Family History (units (unknown) date) (Reviewed 04/30/22 unknown) @ 20:41 by Virginia Orr DO) (unknown) (no (unknown) (unknown) Father Eczema (units (unknown) date) unknown) (unknown) (no (unknown) (unknown) GASTROINTESTINAL: (units (unknown) date) Denies nausea, unknown) vomiting (unknown) (no (unknown) (unknown) GENERAL: Denies (units (unknown) date) chills,fever unknown) (unknown) (no (unknown) (unknown) GENERAL: (units (unkno wn) date) Well-appearing, unknown) well-nourished and in no acute distress. (unknown) (no (unknown) (unknown) General (units (unkno wn) date) unknown) (unknown) (no (unknown) (unknown) Grandfather (units (un known) date) Cancer unknown) (unknown) (no (unknown) (unknown) Gross hematuria (units (unknown) date) unknown) (unknown) (no (unknown) (unknown) HEENT: Denies (units ( unknown) date) throat pain unknown) (unknown) (no (unknown) (unknown) HPI - Extremity (units (unknown) date) Injury (Lower) unknown) (unknown) (no (unknown) (unknown) HPI Narrative: (units (unknown) date) unknown) (unknown) (no (unknown) (unknown) History of ADHD (units (unknown) date) unknown) (unknown) (no (unknown) (unknown) History of Present (units (unknown) date) Illness unknown) (unknown) (no (unknown) (unknown) Hx of (units (unkno wn) date) gastroesophageal unknown) reflux (GERD) (unknown) (no (unknown) (unknown) Hx of insomnia (units (unknown) date) unknown) (unknown) (no (unknown) (unknown) IMPRESSION:? (units (u nknown) date) unknown) (unknown) (no (unknown) (unknown) INDICATIONS:? (units ( unknown) date) twisting injury, unknown) contusion (unknown) (no (unknown) (unknown) Imaging Data (units (u nknown) date) unknown) (unknown) (no (unknown) (unknown) Initial Vital (units ( unknown) date) Signs unknown) (unknown) (no (unknown) (unknown) Initial Vital (units ( unknown) date) Signs: unknown) (unknown) (no (unknown) (unknown) Instructions: DI (units (unknown) date) for Foot Pain unknown) (unknown) (no (unknown) (unknown) Left foot mild (units (unknown) date) midfoot pain. No unknown) contusion no swelling no erythema distal pedal (unknown) (no (unknown) (unknown) Loc: ED (units (unkno wn) date) unknown) (unknown) (no (unknown) (unknown) MDM - Extremity (units (unknown) date) Injury (Lower) unknown) (unknown) (no (unknown) (unknown) MR#: [id number] (units (unknown) date) unknown) (unknown) (no (unknown) (unknown) MUSCULOSKELETAL: (units (unknown) date) See HPI unknown) (unknown) (no (unknown) (unknown) Medical History (units (unknown) date) unknown) (unknown) (no (unknown) (unknown) Mode of arrival: (units (unknown) date) Ambulatory unknown) (unknown) (no (unknown) (unknown) Mother (units (unkno wn) date) Congenital heart unknown) defect (unknown) (no (unknown) (unknown) Motrin 600 mg (units ( unknown) date) every 6 8 hours and unknown) form 100 pain (unknown) (no (unknown) (unknown) NEUROLOGIC: Denies (units (unknown) date) weakness, unknown) dizziness, headache, numbness (unknown) (no (unknown) (unknown) NEUROLOGICAL: (units ( unknown) date) Cranial nerves II unknown) through XII grossly intact. Normal gait and (unknown) (no (unknown) (unknown) Narrative: (units (unk nown) date) unknown) (unknown) (no (unknown) (unknown) No Action (units (unkn own) date) unknown) (unknown) (no (unknown) (unknown) No Known Drug (units ( unknown) date) Allergies Allergy unknown) Verified 03/06/22 13:54 (unknown) (no (unknown) (unknown) Ordered: (units (unkno wn) date) unknown) (unknown) (no (unknown) (unknown) Ordering Provider: (units (unknown) date) Virginia Orr D.O. unknown) (unknown) (no (unknown) (unknown) Orders (units (unkno wn) date) unknown) (unknown) (no (unknown) (unknown) Oxygen Delivery (units (unknown) date) Method 04/30/22 unknown) 18:23 (unknown) (no (unknown) (unknown) Oxygen Delivery (units (unknown) date) Method Room Air unknown) (unknown) (no (unknown) (unknown) PROCEDURE:? XR (units (unknown) date) FOOT LT MIN 3V unknown) (unknown) (no (unknown) (unknown) Patient (units (unkno wn) date) Disposition: Home unknown) (unknown) (no (unknown) (unknown) Patient History (units (unknown) date) unknown) (unknown) (no (unknown) (unknown) Patient is a (units (u nknown) date) healthy 21-year-old unknown) female who presents with left foot pain. She (unknown) (no (unknown) (unknown) Patient: (units (unkno wn) date) Queta Gallagher P unknown) MR#: [id number] (unknown) (no (unknown) (unknown) Patient: (units (unkno wn) date) Queta Gallagher P unknown) (unknown) (no (unknown) (unknown) Prescriptions: (units (unknown) date) unknown) (unknown) (no (unknown) (unknown) Procedure: XR foot (units (unknown) date) LT min 3V unknown) (unknown) (no (unknown) (unknown) Pulse Oximetry 98 (units (unknown) date) 04/30/22 18:23 unknown) (unknown) (no (unknown) (unknown) Pulse Oximetry 98 (units (unknown) date) unknown) (unknown) (no (unknown) (unknown) Pulse Rate 95 H (units (unknown) date) 04/30/22 18:23 unknown) (unknown) (no (unknown) (unknown) Pulse Rate 95 H (units (unknown) date) unknown) (unknown) (no (unknown) (unknown) RESPIRATORY: (units (u nknown) date) Denies dyspnea, unknown) cough, wheezing (unknown) (no (unknown) (unknown) RESPIRATORY: No (units (unknown) date) respiratory unknown) distress, speaks in full sentences without (unknown) (no (unknown) (unknown) Recurrent urinary (units (unknown) date) tract infection unknown) (unknown) (no (unknown) (unknown) Related Data (units (u nknown) date) unknown) (unknown) (no (unknown) (unknown) Respiratory Rate (units (unknown) date) 18 04/30/22 18:23 unknown) (unknown) (no (unknown) (unknown) Respiratory Rate (units (unknown) date) 18 unknown) (unknown) (no (unknown) (unknown) Review of Systems (units (unknown) date) unknown) (unknown) (no (unknown) (unknown) SKIN: No rash, no (units (unknown) date) laceration, no unknown) pruritus (unknown) (no (unknown) (unknown) SKIN: Warm, dry, (units (unknown) date) no petechiae, no unknown) rashes or lesions. (unknown) (no (unknown) (unknown) Signed By: (units (unk nown) date) unknown) (unknown) (no (unknown) (unknown) Sister Anxiety (units (unknown) date) unknown) (unknown) (no (unknown) (unknown) Smokeless tobacco (units (unknown) date) user: other unknown) (unknown) (no (unknown) (unknown) Smoking Status: (units (unknown) date) Current every day unknown) smoker (unknown) (no (unknown) (unknown) Smoking Status: (units (unknown) date) Current every day unknown) smoker (unknown) (no (unknown) (unknown) Social History (units (unknown) date) (Reviewed 04/30/22 unknown) @ 20:41 by Virginia Orr DO) (unknown) (no (unknown) (unknown) Soft tissues:? No (units (unknown) date) tibiotalar joint unknown) effusion.? Achilles tendon appears normal.? (unknown) (no (unknown) (unknown) Source: patient (units (unknown) date) unknown) (unknown) (no (unknown) (unknown) Stated Complaint: (units (unknown) date) LEFT FOOT INJURY unknown) (unknown) (no (unknown) (unknown) TECHNIQUE:? 3 (units ( unknown) date) views of the foot unknown) were acquired.? (unknown) (no (unknown) (unknown) Temperature 98.1 (units (unknown) date) F 04/30/22 18:23 unknown) (unknown) (no (unknown) (unknown) Temperature 98.1 F (units (unknown) date) unknown) (unknown) (no (unknown) (unknown) Time Seen by (units (u nknown) date) Provider: 04/30/22 unknown) 20:20 (unknown) (no (unknown) (unknown) Tobacco use (units (un known) date) unknown) (unknown) (no (unknown) (unknown) Tylenol 1000 mg (units (unknown) date) every 6 hours if unknown) needed for cptf-cu-vhocoiol pain (unknown) (no (unknown) (unknown) Vital Signs (units (un known) date) unknown) (unknown) (no (unknown) (unknown) Vital signs: (units (u nknown) date) unknown) (unknown) (no (unknown) (unknown) XR foot LT min 3V (units (unknown) date) Stat unknown) (unknown) (no (unknown) (unknown) alcohol intake: (units (unknown) date) current unknown) (unknown) (no (unknown) (unknown) ambulate but does (units (unknown) date) hurt. No other unknown) injury.. She has not taken anything for pain. (unknown) (no (unknown) (unknown) any new, worsening (units (unknown) date) or concerning unknown) symptoms (unknown) (no (unknown) (unknown) close trying to (units (unknown) date) compress thin down. unknown) The out felt her foot but. He is able to (unknown) (no (unknown) (unknown) d-mannose 500 mg (units (unknown) date) capsule mg PO unknown) 02/19/22 03/06/22 (unknown) (no (unknown) (unknown) difficulty (units (unk nown) date) unknown) (unknown) (no (unknown) (unknown) intact (units (unkno wn) date) unknown) (unknown) (no (unknown) (unknown) phenazopyridine (units (unknown) date) 100 mg tablet 100 unknown) mg PO TID PRN pain 6 doses #6 01/03/22 (unknown) (no (unknown) (unknown) pulse intact. (units ( unknown) date) Achilles intact unknown) ankle has no swelling. (unknown) (no (unknown) (unknown) said today at 2:30 (units (unknown) date) a.m. this afternoon unknown) she jumped in her laundry basket with (unknown) (no (unknown) (unknown) second hand (units (un known) date) exposure: No unknown) (unknown) (no (unknown) (unknown) speech. (units (unkno wn) date) unknown) Result panel 14 (unknown) (no (unknown) (unknown) (no value) (units (unk nown) date) unknown) (unknown) (no (unknown) (unknown) Radiologist's (units ( unknown) date) Impression: unknown) (unknown) (no (unknown) (unknown) PO (units (unkno wn) date) unknown) (unknown) (no (unknown) (unknown) Date of Service: (units (unknown) date) 04/30/22 unknown) (unknown) (no (unknown) (unknown) (no value) (units (unk nown) date) unknown) (unknown) (no (unknown) (unknown) <Electronically (units (unknown) date) signed by Virginia unknown) Ирина Orr> (unknown) (no (unknown) (unknown) 04/30/22 2339 (units ( unknown) date) unknown) (unknown) (no (unknown) (unknown) 100 mg PO TID PRN (units (unknown) date) (Reason: pain) Qty: unknown) 6 0RF (unknown) (no (unknown) (unknown) Allergies (units (unkn own) date) unknown) (unknown) (no (unknown) (unknown) ED Orders (units (unkn own) date) unknown) (unknown) (no (unknown) (unknown) Emergency Report (units (unknown) date) unknown) (unknown) (no (unknown) (unknown) Home Medications (units (unknown) date) unknown) (unknown) (no (unknown) (unknown) Hypertension (units (u nknown) date) unknown) (unknown) (no (unknown) (unknown) [facility] (units (unknown) date) [address] [place] [address] Street unknown) [place] [address] (unknown) (no (unknown) (unknown) Previous Rx's (units ( unknown) date) unknown) (unknown) (no (unknown) (unknown) Signed (units (unkno wn) date) unknown) (unknown) (no (unknown) (unknown) Vital Signs - 8 hr (units (unknown) date) unknown) (unknown) (no (unknown) (unknown) XRay Report (units (un known) date) unknown) (unknown) (no (unknown) (unknown) (no value) (units (unk nown) date) unknown) (unknown) (no (unknown) (unknown) d-mannose 500 mg (units (unknown) date) capsule unknown) (unknown) (no (unknown) (unknown) phenazopyridine (units (unknown) date) [Pyridium] 100 mg unknown) tablet (unknown) (no (unknown) (unknown) 04/30/22 (units (unkno wn) date) unknown) (unknown) (no (unknown) (unknown) Foot sprain (units (un known) date) unknown) (unknown) (no (unknown) (unknown) Medication (units (unk nown) date) Instructions unknown) Recorded (unknown) (no (unknown) (unknown) Medication (units (unk nown) date) Instructions unknown) Recorded Confirmed (unknown) (no (unknown) (unknown) (Pyridium) tabs (units (unknown) date) unknown) (unknown) (no (unknown) (unknown) *Continue to take (units (unknown) date) medications as unknown) directed (unknown) (no (unknown) (unknown) *Follow up with (units (unknown) date) your primary care unknown) provider in 2-3 days or call [phone] (unknown) (no (unknown) (unknown) *Return to ER if (units (unknown) date) you should have unknown) increasing pain swelling inability to walk or (unknown) (no (unknown) (unknown) *What to do: At (units (unknown) date) this time increase unknown) activity and weight-bearing as tolerated. (unknown) (no (unknown) (unknown) *You have been (units (unknown) date) diagnosed with left unknown) foot sprain (unknown) (no (unknown) (unknown) [id number] (units (unkno wn) date) unknown) (unknown) (no (unknown) (unknown) 04/30/22 18:26 (units (unknown) date) unknown) (unknown) (no (unknown) (unknown) 1. No fracture or (units (unknown) date) dislocation. unknown) (unknown) (no (unknown) (unknown) 18:23 04/30/22 (units (unknown) date) unknown) (unknown) (no (unknown) (unknown) 20:52 (units (unkno wn) date) unknown) (unknown) (no (unknown) (unknown) 8 point review of (units (unknown) date) systems is negative unknown) except for those stated above and HPI (unknown) (no (unknown) (unknown) ? (units (unkno wn) date) unknown) (unknown) (no (unknown) (unknown) Accession Number: (units (unknown) date) [id number] ?? unknown) (unknown) (no (unknown) (unknown) Acct:[id number] (units (unknown) date) unknown) (unknown) (no (unknown) (unknown) Activity (units (unkno wn) date) Restrictions/Additi unknown) onal Instructions: (unknown) (no (unknown) (unknown) Age/Sex: 21 / F (units (unknown) date) unknown) (unknown) (no (unknown) (unknown) Age/Sex: 21 / F (units (unknown) date) unknown) (unknown) (no (unknown) (unknown) Allergy/AdvReac (units (unknown) date) Type Severity unknown) Reaction Status Date / Time (unknown) (no (unknown) (unknown) Blood Pressure (units (unknown) date) 109/63 04/30/22 unknown) 18:23 (unknown) (no (unknown) (unknown) Blood Pressure (units (unknown) date) 109/63 114/63 unknown) (unknown) (no (unknown) (unknown) Bones:? No (units (unk nown) date) fractures or unknown) dislocations.? No suspicious bony lesions.? (unknown) (no (unknown) (unknown) CARDIOVASCULAR: (units (unknown) date) Denies chest pain, unknown) palpitations (unknown) (no (unknown) (unknown) CARDIOVASCULAR: (units (unknown) date) peripheral pulses unknown) in tact, cap refill <2 sec (unknown) (no (unknown) (unknown) COMPARISON:? None. (units (unknown) date) unknown) (unknown) (no (unknown) (unknown) Chief Complaint: (units (unknown) date) Extremity Injury, unknown) Lower (unknown) (no (unknown) (unknown) Clinical (units (unkno wn) date) Impression: unknown) (unknown) (no (unknown) (unknown) Course (units (unkno wn) date) unknown) (unknown) (no (unknown) (unknown) : 2000 (units (unknown) date) Acct:[id number] unknown) (unknown) (no (unknown) (unknown) : 2000 (units (unknown) date) unknown) (unknown) (no (unknown) (unknown) Date of Service: (units (unknown) date) 04/30/22 unknown) (unknown) (no (unknown) (unknown) Departure (units (unkn own) date) unknown) (unknown) (no (unknown) (unknown) Dictated by: (units (u nknown) date) Lincoln Calvo, unknownTal Aponte on 04/30/2022 at 19:09 ? ? (unknown) (no (unknown) (unknown) Discharge Plan (units (unknown) date) unknown) (unknown) (no (unknown) (unknown) ER Physician: (units ( unknown) date) Virginia Orr D.O. unknown) (unknown) (no (unknown) (unknown) EXTREMITIES: (units (u nknown) date) Normal range of unknown) motion, no clubbing or edema. Neurovascularly (unknown) (no (unknown) (unknown) Elevate ice as (units (unknown) date) needed. Wear unknown) supportive shoes. (unknown) (no (unknown) (unknown) Exam (units (unkno wn) date) unknown) (unknown) (no (unknown) (unknown) Extremity x-ray (units (unknown) date) #1: unknown) (unknown) (no (unknown) (unknown) FINDINGS:? (units (unk nown) date) unknown) (unknown) (no (unknown) (unknown) Family History (units (unknown) date) (Reviewed 04/30/22 unknown) @ 20:41 by Virginia Orr DO) (unknown) (no (unknown) (unknown) Father Eczema (units (unknown) date) unknown) (unknown) (no (unknown) (unknown) GASTROINTESTINAL: (units (unknown) date) Denies nausea, unknown) vomiting (unknown) (no (unknown) (unknown) GENERAL: Denies (units (unknown) date) chills,fever unknown) (unknown) (no (unknown) (unknown) GENERAL: (units (unkno wn) date) Well-appearing, unknown) well-nourished and in no acute distress. (unknown) (no (unknown) (unknown) General (units (unkno wn) date) unknown) (unknown) (no (unknown) (unknown) Grandfather (units (un known) date) Cancer unknown) (unknown) (no (unknown) (unknown) Gross hematuria (units (unknown) date) unknown) (unknown) (no (unknown) (unknown) HEENT: Denies (units ( unknown) date) throat pain unknown) (unknown) (no (unknown) (unknown) HPI - Extremity (units (unknown) date) Injury (Lower) unknown) (unknown) (no (unknown) (unknown) HPI Narrative: (units (unknown) date) unknown) (unknown) (no (unknown) (unknown) History of ADHD (units (unknown) date) unknown) (unknown) (no (unknown) (unknown) History of Present (units (unknown) date) Illness unknown) (unknown) (no (unknown) (unknown) Hx of (units (unkno wn) date) gastroesophageal unknown) reflux (GERD) (unknown) (no (unknown) (unknown) Hx of insomnia (units (unknown) date) unknown) (unknown) (no (unknown) (unknown) IMPRESSION:? (units (u nknown) date) unknown) (unknown) (no (unknown) (unknown) INDICATIONS:? (units ( unknown) date) twisting injury, unknown) contusion (unknown) (no (unknown) (unknown) Imaging Data (units (u nknown) date) unknown) (unknown) (no (unknown) (unknown) Initial Vital (units ( unknown) date) Signs unknown) (unknown) (no (unknown) (unknown) Initial Vital (units ( unknown) date) Signs: unknown) (unknown) (no (unknown) (unknown) Instructions: DI (units (unknown) date) for Foot Pain unknown) (unknown) (no (unknown) (unknown) Left foot mild (units (unknown) date) midfoot pain. No unknown) contusion no swelling no erythema distal pedal (unknown) (no (unknown) (unknown) Loc: ED (units (unkno wn) date) unknown) (unknown) (no (unknown) (unknown) MDM - Extremity (units (unknown) date) Injury (Lower) unknown) (unknown) (no (unknown) (unknown) MR#: [id number] (units (unknown) date) unknown) (unknown) (no (unknown) (unknown) MUSCULOSKELETAL: (units (unknown) date) See HPI unknown) (unknown) (no (unknown) (unknown) Medical History (units (unknown) date) unknown) (unknown) (no (unknown) (unknown) Mode of arrival: (units (unknown) date) Ambulatory unknown) (unknown) (no (unknown) (unknown) Mother (units (unkno wn) date) Congenital heart unknown) defect (unknown) (no (unknown) (unknown) Motrin 600 mg (units ( unknown) date) every 6 8 hours and unknown) form 100 pain (unknown) (no (unknown) (unknown) NEUROLOGIC: Denies (units (unknown) date) weakness, unknown) dizziness, headache, numbness (unknown) (no (unknown) (unknown) NEUROLOGICAL: (units ( unknown) date) Cranial nerves II unknown) through XII grossly intact. Normal gait and (unknown) (no (unknown) (unknown) Narrative: (units (unk nown) date) unknown) (unknown) (no (unknown) (unknown) No Action (units (unkn own) date) unknown) (unknown) (no (unknown) (unknown) No Known Drug (units ( unknown) date) Allergies Allergy unknown) Verified 03/06/22 13:54 (unknown) (no (unknown) (unknown) Ordered: (units (unkno wn) date) unknown) (unknown) (no (unknown) (unknown) Ordering Provider: (units (unknown) date) Virginia Orr D.O. unknown) (unknown) (no (unknown) (unknown) Orders (units (unkno wn) date) unknown) (unknown) (no (unknown) (unknown) Oxygen Delivery (units (unknown) date) Method 04/30/22 unknown) 18:23 (unknown) (no (unknown) (unknown) Oxygen Delivery (units (unknown) date) Method Room Air unknown) Room Air (unknown) (no (unknown) (unknown) PROCEDURE:? XR (units (unknown) date) FOOT LT MIN 3V unknown) (unknown) (no (unknown) (unknown) Patient (units (unkno wn) date) Disposition: Home unknown) (unknown) (no (unknown) (unknown) Patient History (units (unknown) date) unknown) (unknown) (no (unknown) (unknown) Patient is a (units (u nknown) date) healthy 21-year-old unknown) female who presents with left foot pain. She (unknown) (no (unknown) (unknown) Patient: (units (unkno wn) date) Queta Gallagher unknown) MR#: [id number] (unknown) (no (unknown) (unknown) Patient: (units (unkno wn) date) Queta Gallagher unknown) (unknown) (no (unknown) (unknown) Prescriptions: (units (unknown) date) unknown) (unknown) (no (unknown) (unknown) Procedure: XR foot (units (unknown) date) LT min 3V unknown) (unknown) (no (unknown) (unknown) Pulse Oximetry 98 (units (unknown) date) 04/30/22 18:23 unknown) (unknown) (no (unknown) (unknown) Pulse Oximetry 98 (units (unknown) date) 100 unknown) (unknown) (no (unknown) (unknown) Pulse Rate 95 H (units (unknown) date) 04/30/22 18:23 unknown) (unknown) (no (unknown) (unknown) Pulse Rate 95 H 63 (units (unknown) date) unknown) (unknown) (no (unknown) (unknown) RESPIRATORY: (units (u nknown) date) Denies dyspnea, unknown) cough, wheezing (unknown) (no (unknown) (unknown) RESPIRATORY: No (units (unknown) date) respiratory unknown) distress, speaks in full sentences without (unknown) (no (unknown) (unknown) Recurrent urinary (units (unknown) date) tract infection unknown) (unknown) (no (unknown) (unknown) Related Data (units (u nknown) date) unknown) (unknown) (no (unknown) (unknown) Respiratory Rate (units (unknown) date) 18 04/30/22 18:23 unknown) (unknown) (no (unknown) (unknown) Respiratory Rate (units (unknown) date) 18 16 unknown) (unknown) (no (unknown) (unknown) Review of Systems (units (unknown) date) unknown) (unknown) (no (unknown) (unknown) SKIN: No rash, no (units (unknown) date) laceration, no unknown) pruritus (unknown) (no (unknown) (unknown) SKIN: Warm, dry, (units (unknown) date) no petechiae, no unknown) rashes or lesions. (unknown) (no (unknown) (unknown) Signed By: (units (unk nown) date) unknown) (unknown) (no (unknown) (unknown) Sister Anxiety (units (unknown) date) unknown) (unknown) (no (unknown) (unknown) Smokeless tobacco (units (unknown) date) user: other unknown) (unknown) (no (unknown) (unknown) Smoking Status: (units (unknown) date) Current every day unknown) smoker (unknown) (no (unknown) (unknown) Smoking Status: (units (unknown) date) Current every day unknown) smoker (unknown) (no (unknown) (unknown) Social History (units (unknown) date) (Reviewed 04/30/22 unknown) @ 20:41 by Virginia Orr DO) (unknown) (no (unknown) (unknown) Soft tissues:? No (units (unknown) date) tibiotalar joint unknown) effusion.? Achilles tendon appears normal.? (unknown) (no (unknown) (unknown) Source: patient (units (unknown) date) unknown) (unknown) (no (unknown) (unknown) Stated Complaint: (units (unknown) date) LEFT FOOT INJURY unknown) (unknown) (no (unknown) (unknown) TECHNIQUE:? 3 (units ( unknown) date) views of the foot unknown) were acquired.? (unknown) (no (unknown) (unknown) Temperature 98.1 (units (unknown) date) F 04/30/22 18:23 unknown) (unknown) (no (unknown) (unknown) Temperature 98.1 F (units (unknown) date) unknown) (unknown) (no (unknown) (unknown) Time Seen by (units (u nknown) date) Provider: 04/30/22 unknown) 20:20 (unknown) (no (unknown) (unknown) Tobacco use (units (un known) date) unknown) (unknown) (no (unknown) (unknown) Tylenol 1000 mg (units (unknown) date) every 6 hours if unknown) needed for [id number] pain (unknown) (no (unknown) (unknown) Visit Report (units (u nknown) date) Forms: Patient unknown) Portal/API (unknown) (no (unknown) (unknown) Vital Signs (units (un known) date) unknown) (unknown) (no (unknown) (unknown) Vital signs: (units (u nknown) date) unknown) (unknown) (no (unknown) (unknown) XR foot LT min 3V (units (unknown) date) Stat unknown) (unknown) (no (unknown) (unknown) alcohol intake: (units (unknown) date) current unknown) (unknown) (no (unknown) (unknown) ambulate but does (units (unknown) date) hurt. No other unknown) injury.. She has not taken anything for pain. (unknown) (no (unknown) (unknown) any new, worsening (units (unknown) date) or concerning unknown) symptoms (unknown) (no (unknown) (unknown) close trying to (units (unknown) date) compress thin down. unknown) The out felt her foot but. He is able to (unknown) (no (unknown) (unknown) d-mannose 500 mg (units (unknown) date) capsule mg PO unknown) 02/19/22 03/06/22 (unknown) (no (unknown) (unknown) difficulty (units (unk nown) date) unknown) (unknown) (no (unknown) (unknown) intact (units (unkno wn) date) unknown) (unknown) (no (unknown) (unknown) phenazopyridine (units (unknown) date) 100 mg tablet 100 unknown) mg PO TID PRN pain 6 doses #6 01/03/22 (unknown) (no (unknown) (unknown) pulse intact. (units ( unknown) date) Achilles intact unknown) ankle has no swelling. (unknown) (no (unknown) (unknown) said today at 2:30 (units (unknown) date) a.m. this afternoon unknown) she jumped in her laundry basket with (unknown) (no (unknown) (unknown) second hand (units (un known) date) exposure: No unknown) (unknown) (no (unknown) (unknown) speech. (units (unkno wn) date) unknown) Social History date description facility (no date) Smokes tobacco daily (finding) [facility] Vital Signs date measurement value units +0000 BMI BMI 18.3 kg/m2 [id number]+0000 BP_diastolic BP_diastolic 61 mm[H g] +0000 BP_systolic BP_systolic 113 mm[Hg] [id number]+0000 heart_rate heart_rate 77 /min [id number]+0000 height_metric height_metric 165.1 cm [id number]+0000 height_standard height_standard 65 in [id number]+0000 respiration_rate respiration_rate 16 /min [id number]+0000 weight_metric weight_metric 22.63 kg [id number]+0000 weight_standard weight_standard 49.9 lb +0000 BP_diastolic BP_diastolic 63 mm[H g] +0000 BP_systolic BP_systolic 114 mm[Hg] +0000 heart_rate heart_rate 63 /min +0000 respiration_rate respiration_rate 16 /min +0000 temperature_metric temperature_metric 36.72 C +0000 temperature_standard temperature_standard 9 8.1 F +0000 weight_metric weight_metric 23.04 kg +0000 weight_standard weight_standard 50.8 lb
[2022-05-11 05:12] VITALS: BP 121/74
[2022-05-11 05:23] LABS: BILIRUBIN,URINE NEGATIVE (NEGATIVE); GLUCOSE, URINE (UA) NEGATIVE (NEGATIVE); KETONES,URINE (UA) NEGATIVE (NEGATIVE); LEUKOCYTE ESTERASE, URINE MODERATE (NEGATIVE); NITRITE,URINE POSITIVE (NEGATIVE); OCCULT BLOOD,URINE LARGE (NEGATIVE); PROTEIN,URINE 30 mg/dL (NEGATIVE); UROBILINOGEN,URINE 0.2 (NORMAL) E.U./dL (NORMAL)
[2022-05-11 05:32] LABS: BACTERIA,URINE Few /HPF (None Seen); CLARITY,URINE SL. CLOUDY (CLEAR); HCG UR QUAL NEGATIVE; SQUAMOUS EPITHELIAL CELL,UR FEW Squamous (<= Few); WBC,URINE >25 /HPF (0-5)
[2022-05-11] MEDS ORDERED: NITROFURANTOIN MACRO 100 MG CAPSULE PO STA (05:36)
--- NOTE | 2022-05-11 05:38 | ED Physician Documentation ---
PD HPI FEMALE - Stated complaint Stated Complaint: FEMALE - Chief complaint Chief Complaint: UTI - History obtained from History obtained from: Patient - History of Present Illness Timing - duration: Days (2) - Additional information Additional information: Patient is a 21-year-old female with a history of recurrent UTIs presenting for evaluation of dysuria for the last 2 days. Patient denies any blood in her urine and denies vaginal discharge or abnormal vaginal bleeding. She does not believe she is . She does not have concerns for sexually transmitted infections. She does have a history of recurrent UTIs and this episode feels similar.She started taking Azo yesterday with minimal improvement in her symptoms.She does have a urologist in [place] and is supposed to schedule another cystoscopy. She denies fever, chest pain, difficulty breathing, abdominal pain, vomiting, flank pain. Review of Systems Constitutional: denies: Fever Nose: denies: Congestion Cardiac: denies: Chest pain / pressure Respiratory: denies: Dyspnea, Cough GI: denies: Abdominal Pain, Vomiting : reports: Dysuria. denies: Hematuria, Vaginal bleeding Skin: denies: Rash Musculoskeletal: denies: Back pain Neurologic: denies: Headache PD PAST MEDICAL HISTORY - Past Medical History Cardiovascular: None Respiratory: None Neuro: None Endocrine/Autoimmune: None GI: Other PROFESSIONAL [employer]: None : Chronic bladder infection HEENT: None Psych: ADD/ADHD Musculoskeletal: None Derm: None - Past Surgical History Past Surgical History: No - Present Medications Home Medications: Ambulatory Orders Medication Instructions Recorded Confirmed Naproxen 250 mg PO BID 10 Days #20 tablet 12/12/21 Phenazopyridine HCl [Pyridium] 100 mg PO TID PRN #15 tablet 12/12/21 metroNIDAZOLE [Flagyl] 250 mg PO TID 7 Days #20 tablet 12/12/21 Nitrofurantoin [Macrobid] 1 cap PO BID #10 cap 05/11/22 - Allergies Allergies/Adverse Reactions: Allergies Allergy/AdvReac Type Severity Reaction Status Date / Time No Known Drug Allergies Allergy Verified 05/11/22 05:08 - Social History Does the pt smoke?: No Smoking Status: Never smoker Does the pt drink ETOH?: No Does the pt have substance abuse?: No - Immunizations Immunizations are current?: Yes - POLST Patient has POLST: No PD ED PE NORMAL - General General: Alert and oriented X 3, No acute distress, Well developed/nourished - HEENT HEENT: Atraumatic, Moist mucous membranes - Neck Neck: Supple, no meningeal sign - Cardiac Cardiac: RRR, No murmur, Strong equal pulses - Respiratory Respiratory: No respiratory distress, Clear bilaterally - Abdomen Abdomen: Normal bowel sounds, Soft, Non tender, Non distended - Derm Derm: Warm and dry - Extremities Extremities: No edema Results - Vitals Vitals: Vital Signs - 24 hr 05/11/22 05:08 Temperature 36.5 C Heart Rate 85 Respiratory 16 Rate Blood Pressure 121/74 O2 Saturation 99 Oxygen O2 Source Room air - Labs Labs: Laboratory Tests 05/11/22 05:15 Urine Color YELLOW Urine Clarity SL. CLOUDY Urine pH 6.0 Ur Specific [place] >=1.030 H Urine Protein 30 H Urine Glucose (UA) NEGATIVE Urine Ketones NEGATIVE Urine Occult Blood LARGE H Urine Nitrite POSITIVE H Urine Bilirubin NEGATIVE Urine Urobilinogen 0.2 (NORMAL) Ur Leukocyte Esterase MODERATE H Urine RBC 11-25 H Urine WBC >25 H Ur Squamous Epith Cells FEW Squamous Urine Bacteria Few Ur Microscopic Review INDICATED Urine Culture Comments INDICATED Urine HCG, Qual NEGATIVE PD MEDICAL DECISION MAKING - ED course Complexity details: reviewed results ED course: Patient with dysuria x2 days. Afebrile with reassuring exam. No abdominal tenderness. No pelvic complaints. Denies vaginal discharge or bleeding. Urine is suggestive of a UTI. Patient to be started on Macrobid. No previous culture results found. Patient is aware of return precautions. She is ambulatory and well-appearing at discharge. Departure - Departure Disposition: 01 Home, Self Care Clinical Impression: Urinary tract infection Qualifiers: Urinary tract infection type: acute cystitis Hematuria presence: without hematuria Qualified Code(s): N30.00 - Acute cystitis without hematuria Condition: Stable Instructions: ED UTI Cystitis Female Prescriptions: Nitrofurantoin [Macrobid] 1 cap PO BID #10 cap Comments: You were evaluated for pain with urination and found to have a urinary tract infection. I have started you on an antibiotic called Macrobid. I have sent the prescription to [facility] [place]. Please complete the full course of the antibiotic even if your symptoms improve. If you develop any new symptoms such as fever, back pain, vomiting, Abdominal pain, abnormal vaginal discharge or have other concerns please return to the emergency department. Otherwise please follow-up with your urologist. Discharge Date/Time: 05/11/22 05:54
== END 2022-05-11 05:54 | disposition home or self-care (01) ==
LOC: ED 05:01
DX: N30.00 Acute cystitis without hematuria (principal)
CPT/HCPCS: 81001; 81025; 87086; 99282; 99283; A9270; 81003

== ENCOUNTER 2022-11-01 11:59 | Emergency (ER) | payer OTHER ==
[2022-11-01 12:18] VITALS: BP 129/65
[2022-11-01 12:34] LABS: BILIRUBIN,URINE NEGATIVE (NEGATIVE); GLUCOSE, URINE (UA) NEGATIVE (NEGATIVE); KETONES,URINE (UA) NEGATIVE (NEGATIVE); LEUKOCYTE ESTERASE, URINE NEGATIVE (NEGATIVE); NITRITE,URINE NEGATIVE (NEGATIVE); OCCULT BLOOD,URINE SMALL (NEGATIVE); PROTEIN,URINE NEGATIVE (NEGATIVE); UROBILINOGEN,URINE 0.2 (NORMAL) E.U./dL (NORMAL)
[2022-11-01 12:41] LABS: CLARITY,URINE HAZY (CLEAR); HCG UR QUAL NEGATIVE
[2022-11-01 12:47] LABS: BACTERIA,URINE Few /HPF (None Seen); RBC,URINE 0-5 /HPF (0-5); SQUAMOUS EPITHELIAL CELL,UR MANY Squamous (<= Few); WBC,URINE 0-3 /HPF (0-5)
--- NOTE | 2022-11-01 13:41 | ED Physician Documentation ---
History of Present Illness - Stated complaint Stated Complaint: ABD PX - Chief complaint Chief Complaint: Abd Pain - Additonal information Additional information: 22-year-old female presents the emergency department for evaluation of dysuria. Reports this has been a recurrent problem and 6 months ago she had a cystoscopy with Dr. Celeste. She reports that they found a lesion in her bladder but at that time elected not to biopsy it and she was to follow-up for repeat cystoscopy in 6 months. Due to COVID she has been unable to follow-up. Reports that she began having some bladder spasm and pain about a week ago that got acutely worse over the last 24 hours. No fevers nausea or vomiting. No other pertinent past surgical history. She does have an IUD in place and has not felt for her strings in quite some time. This recent episode is not associated with any sexual activity. Review of Systems Constitutional: denies: Fever, Chills Cardiac: reports: Reviewed and negative Respiratory: reports: Reviewed and negative GI: reports: Reviewed and negative : reports: Dysuria. denies: Discharge, Vaginal bleeding, Irregular menses Skin: reports: Reviewed and negative PD PAST MEDICAL HISTORY - Past Medical History Cardiovascular: None Respiratory: None Neuro: None Endocrine/Autoimmune: None GI: Other [employer] DEPARTMENT: None : Chronic bladder infection HEENT: None Psych: ADD/ADHD Musculoskeletal: None Derm: None - Past Surgical History Past Surgical History: No - Present Medications Home Medications: Ambulatory Orders Medication Instructions Recorded Confirmed Phenazopyridine HCl [Pyridium] 200 mg PO TID #6 tablet 11/01/22 - Allergies Allergies/Adverse Reactions: Allergies Allergy/AdvReac Type Severity Reaction Status Date / Time No Known Drug Allergies Allergy Verified 11/01/22 12:17 - Social History Does the pt smoke?: No Smoking Status: Never smoker Does the pt drink ETOH?: No Does the pt have substance abuse?: No - Immunizations Immunizations are current?: Yes - POLST Patient has POLST: No PD ED PE NORMAL - General General: Alert and oriented X 3, No acute distress - Respiratory Respiratory: Clear bilaterally - Abdomen Abdomen: Normal bowel sounds, Soft. No: Non tender (Very mild tenderness elicited of the bladder negative McBurney's. No guarding or rebound. No flank pain.) - Female Female : Muck Hauler present, Other (Brief pelvic exam revealed no abnormal vaginal discharge. Cervix appeared normal. IUD strings exiting the os.) Results - Vitals Vitals: Vital Signs - 24 hr 11/01/22 12:13 Temperature 37.2 C Heart Rate 84 Respiratory 14 Rate Blood Pressure 129/65 O2 Saturation 99 Oxygen O2 Source Room air - Labs Labs: Laboratory Tests 11/01/22 12:19 Urine Color YELLOW Urine Clarity HAZY Urine pH 6.0 Ur Specific [place] >=1.030 H Urine Protein NEGATIVE Urine Glucose (UA) NEGATIVE Urine Ketones NEGATIVE Urine Occult Blood SMALL H Urine Nitrite NEGATIVE Urine Bilirubin NEGATIVE Urine Urobilinogen 0.2 (NORMAL) Ur Leukocyte Esterase NEGATIVE Urine RBC 0-5 Urine WBC 0-3 Ur Squamous Epith Cells MANY Squamous H Urine Bacteria Few Ur Microscopic Review INDICATED Urine Culture Comments NOT INDICATED Urine HCG, Qual NEGATIVE PD Medical Decision Making - ED course Complexity details: reviewed results, considered differential, d/w patient ED course: Well-appearing 22-year-old female presents emergency department for evaluation of dysuria. This has been a recurrent problem for her often without findings of infection in the urine. She has previously been seen by a urologist and had a cystoscopy. Patient reports that they saw a lesion in the bladder but at that time elected not to biopsy it and due to COVID was unable to complete a 6-month cystoscopy follow-up. Here in the emergency department her urine is not consistent with infection. Her abdominal exam was rather benign with mild suprapubic tenderness elicited only. She did question whether her IUD could be causing the discomfort. A brief pelvic exam revealed no abnormal vaginal discharge. Cervix appeared normal and strings were seen exiting the cervix I suspect that she will require repeat cystoscopy and I have asked her to follow closely with her urologist. Short prescription for Pyridium was sent to the pharmacy with the instructions to increase her hydration over the next few days. Emergent worrisome return precautions were discussed for failure symptoms to resolve. Departure - Departure Disposition: 01 Home, Self Care Clinical Impression: Dysuria Condition: Stable Record reviewed to determine appropriate education?: Yes Follow-Up: DREW CELESTE MD [Physician No Access] - Prescriptions: Phenazopyridine HCl [Pyridium] 200 mg PO TID #6 tablet Comments: Queta you came to the emergency department today because you have begun having pain when you pee over the last week. You do have a history of this recurrent problem and have previously been seen by Dr. Rice a urologist. Today in the emergency department your IUD strings are in place. Your urine does not show any findings to suggest infection. Because this has been a recurrent problem and you have previously had a cystoscopy I encourage you to follow closely with your urologist. It may be appropriate at this time to repeat the cystoscopy and consider biopsy of the lesion they found 6 months ago. I want you to stay well-hydrated. If there is any blood in your bladder that can be irritating so flushing it out will be helpful. I have also prescribed some Pyridium that you will take 3 times a day for the next 2 days. This will cause your urine to turn bright orange. At any point you develop fevers, have uncontrolled vomiting or worsening symptoms please return to the ER.
== END 2022-11-01 13:50 | disposition home or self-care (01) ==
LOC: ED 11:59
DX: R30.0 Dysuria (principal)
CPT/HCPCS: 81001; 81003; 81025; 87086; 99283

== ENCOUNTER 2023-06-12 09:14 | Emergency (ER) | payer OTHER ==
--- NOTE | 2023-06-12 09:52 | ED Physician Documentation ---
PD HPI BACK PAIN - Stated complaint Stated Complaint: BACK PX - Chief complaint Chief Complaint: Back Pain - History obtained from History obtained from: Patient - History of Present Illness Timing - onset: Today Timing - duration: Hours (about 2 hours of pain - awoke with pain mid thoracic area between shoulder blades, with feeling of extension to anterior chest. No noted injury. No prior similar. Has not eaten this morning.) Timing - details: Abrupt onset, Still present Location: Upper, Mid Quality: Pain, Sharp Associated symptoms: No: Fever, Weakness, Numbness Improves with: Rest Worsened by: Movement, Palpation, Other (not with breathing) Contributing factors: No: Lifting, Twisting, Trauma Similar symptoms before: Has not had sx before Recently seen: Not recently seen Review of Systems Constitutional: denies: Fever, Chills Nose: denies: Rhinorrhea / runny nose, Congestion Throat: denies: Sore throat Cardiac: denies: Palpitations, Pedal edema, Calf pain Respiratory: denies: Dyspnea, Cough GI: denies: Abdominal Pain, Nausea, Vomiting Skin: denies: Rash PD PAST MEDICAL HISTORY - Past Medical History Past Medical History: Yes Cardiovascular: None Respiratory: None Neuro: None Endocrine/Autoimmune: None 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 : Chronic bladder infection HEENT: None Psych: ADD/ADHD Musculoskeletal: None Derm: None - Past Surgical History Past Surgical History: No - Present Medications Home Medications: Ambulatory Orders Medication Instructions Recorded Confirmed Phenazopyridine HCl [Pyridium] 200 mg PO TID #6 tablet 11/01/22 HYDROcod/ACETAM 5/325 [[place] 5/325] 1 ea PO Q6H PRN #12 tablet 06/12/23 - Allergies Allergies/Adverse Reactions: Allergies Allergy/AdvReac Type Severity Reaction Status Date / Time No Known Drug Allergies Allergy Verified 06/12/23 09:21 - Social History Does the pt smoke?: No Smoking Status: Never smoker Does the pt drink ETOH?: No Does the pt have substance abuse?: No - Immunizations Immunizations are current?: Yes - POLST Patient has POLST: No PD ED PE NORMAL - Vitals Vital signs reviewed: Yes - General General: Alert and oriented X 3, No acute distress, Well developed/nourished - Neck Neck: Supple, no meningeal sign, No adenopathy - Cardiac Cardiac: RRR, No murmur - Respiratory Respiratory: Clear bilaterally - Abdomen Abdomen: Soft, Non tender - Back Back: No spinal TTP, Other (tender in thoracic muscles between scapular lower area. No rash nor sores. ) - Derm Derm: Normal color, Warm and dry - Extremities Extremities: No edema, No calf tenderness / cord Results - Vitals Vitals: Oxygen O2 Source Room air - EKG (time done) 10:26 EKG releavant findings:: EKG personally interpreted by author of this note. Relevant findings are: Rate: Rate (enter#) (54) Rhythm: Sinus bradycardia [place]: Normal Intervals: Normal ID QRS: Normal Ischemia: Normal ST segments. No: ST elevation c/w ischemia, ST depression Compare to prior EKG: Old EKG unavailable - Labs Labs: Laboratory Tests 06/12/23 10:25 Urine Color YELLOW Urine Clarity HAZY Urine pH 7.0 Ur Specific [place] 1.020 Urine Protein NEGATIVE Urine Glucose (UA) NEGATIVE Urine Ketones 15 H Urine Occult Blood NEGATIVE Urine Nitrite NEGATIVE Urine Bilirubin NEGATIVE Urine Urobilinogen 2 H Ur Leukocyte Esterase NEGATIVE Urine RBC 0-5 Urine WBC 0-3 Ur Squamous Epith Cells MOD Squamous H Urine Bacteria Few Ur Microscopic Review INDICATED Urine Culture Comments NOT INDICATED - Rads (name of study) chest xray Relevant Findings:: Prelim report reviewed, EMP independent interpretation of test (no aCUTE CARDIOPULMONARY FINDINGS. ) PD Medical Decision Making - ED course Complexity details: reviewed results (normal ECG and CXR. Vitals are good. Low suspicion for PE (PERC negative). No recent cough. Consider if early infectious and see if onset in next day or so (sort of like torticollis prior to viral URI). ), considered differential (has muscular component with tender palpation, movement, but not really feeling dyspnea. ), d/w patient Departure - Departure Disposition: 01 Home, Self Care Clinical Impression: Acute thoracic back pain Qualifiers: Back pain laterality: bilateral Qualified Code(s): M54.6 - Pain in thoracic spine Condition: Stable Record reviewed to determine appropriate education?: Yes Instructions: ED Acute Pain [facility] Prescriptions: HYDROcod/ACETAM 5/325 [[place] 5/325] 1 ea PO Q6H PRN #12 tablet PRN Reason: Pain Comments: Your chest x-ray appears clear without any signs of obvious lung abnormalities. The heart size appears normal. Your EKG shows a normal rhythm without any signs of irritation of the heart. Your urine is clear without any signs of kidney infection. At this point we will presume musculoskeletal pain. Sometimes this is a precursor of a viral illness or other process. For now I would suggest some ibuprofen 400 mg 3 times a day with food. To that add Tylenol 4 times daily for pain or hydrocodone/acetaminophen if needed for worse pain. Rest and light activity for the next day or 2. Follow-up with your primary care or return to the ER if you blossom other symptoms such as fevers, coughing, fevers, coughing, head cold symptoms, skin rash or any other concerns. Otherwise if this improves over the next few days and we will just go with the musculoskeletal pain improved. I sent your prescription to [facility] in [place]. I am prescribing a short course of narcotic pain medication for you. These are potentially dangerous and addictive medications that should be used carefully. These medications may constipate you. Take an [id number] stool softener such as docusate twice daily with plenty of water while taking these medications. If you go 24 hours without a bowel movement, take [id number] MiraLAX, per package instructions. Do not drink or drive while taking these medications. If you received narcotic or sedating medications while in the emergency department do not drive for 24 hours. Store this medication in a safe, secure place and out of reach of children. It is a violation of federal law to give or sell this medication to another person or to use in a manner other than prescribed. The ED will not refill narcotic prescriptions, including prescriptions lost or stolen. You can dispose of unwanted medications at the [facility] office or at several pharmacies such as [facility]. Discharge Date/Time: 06/12/23 11:53
[2023-06-12] MEDS ORDERED: IBUPROFEN 400 MG TABLET PO STA (10:06)
[2023-06-12] MEDS ORDERED: ACETAMINOPHEN 325 MG TABLET PO STA (10:06)
[2023-06-12 10:35] LABS: BILIRUBIN,URINE NEGATIVE (NEGATIVE); GLUCOSE, URINE (UA) NEGATIVE (NEGATIVE); KETONES,URINE (UA) 15 mg/dL (NEGATIVE); LEUKOCYTE ESTERASE, URINE NEGATIVE (NEGATIVE); NITRITE,URINE NEGATIVE (NEGATIVE); OCCULT BLOOD,URINE NEGATIVE (NEGATIVE); PROTEIN,URINE NEGATIVE (NEGATIVE); UROBILINOGEN,URINE 2 E.U./dL (NORMAL)
[2023-06-12 10:37] LABS: CLARITY,URINE HAZY (CLEAR)
[2023-06-12 10:44] LABS: BACTERIA,URINE Few /HPF (None Seen); RBC,URINE 0-5 /HPF (0-5); SQUAMOUS EPITHELIAL CELL,UR MOD Squamous (<= Few); WBC,URINE 0-3 /HPF (0-5)
--- NOTE | 2023-06-12 10:56 | XRAY Report ---
PROCEDURE: Chest 1 View X-Ray INDICATIONS: upper back pain today TECHNIQUE: One view of the chest was acquired. COMPARISON: Chest x-ray 01/25/2019 FINDINGS: Surgical changes and devices: None. Lungs and pleura: No pleural effusions or pneumothorax. Lungs are clear. Mediastinum: Mediastinal contours appear normal. Heart size is normal. Bones and chest wall: No suspicious bony lesions. Overlying soft tissues appear unremarkable. IMPRESSION: No acute cardiopulmonary process. Reviewed by: Betty Vides MD on 06/12/2023 10:55 AM PDT Approved by: Betty Vides MD on 06/12/2023 10:55 AM PDT Station ID: [id number]
[2023-06-12] MEDS ORDERED: HYDROcod/ACETAM 5/325 MG TABLET PO STA (11:44)
[2023-06-12 11:52] VITALS: BP 99/56
== END 2023-06-12 11:53 | disposition home or self-care (01) ==
LOC: ED 09:14
DX: M54.6 Pain in thoracic spine (principal)
CPT/HCPCS: 71045; 81001; 93005; 99284; A9270; 81003; 87086